=== PATIENT | female | born 1940 | race Caucasian/White ===

== ENCOUNTER → 2017-10-16 09:33 | Outpatient (CLI) | payer BC, MEDICARE, SELFPAY ==
--- NOTE | 2017-10-16 | DI.MG.S_ITS ---
BILATERAL DIGITAL SCREENING MAMMOGRAM 3D/2D WITH CAD: 10/16/2017 CLINICAL: Routine screening. Comparison is made to exams dated: 04/18/2016 mammogram - [facility], 01/30/2013 mammogram, and 01/30/2012 mammogram - [facility]. The tissue of both breasts is predominantly fatty. Current study was also evaluated with a Computer Aided Detection (CAD) system. There are post operative findings in the left breast. No significant masses, calcifications, or other findings are seen in either breast. There has been no significant interval change. IMPRESSION: NEGATIVE There is no mammographic evidence of malignancy. A 1 year screening mammogram is recommended. This exam was interpreted at Station ID: [id number]. NOTE: For mammograms, a report in lay terms will be sent to the patient. Approximately 15% of breast malignancies will not be visualized mammographically. In the management of a palpable breast mass, a negative mammogram must not discourage biopsy of a clinically suspicious lesion. Electronically Signed By: Waldemar nava/justyna:10/16/2017 13:29:25 letter sent: Normal Exam ACR BI-RADS Category 1: Negative 3341F
== END ==
PROVIDERS: PCP Physician Assistant; Visit Provider Physician Assistant
DX: Z12.31 Encounter for screening mammogram for malignant neoplasm of breast (principal)
CPT/HCPCS: 77063; 77067

== ENCOUNTER → 2017-11-11 09:05 | Outpatient (CLI) | payer BC, SELFPAY ==
[2017-11-11 12:31] LABS: Alanine Aminotransferase 41 IU/L (9-52); Albumin 3.9 g/dL (3.5-5.0); Albumin Globulin Ratio 1.4 (1.0-2.8); Alkaline Phosphatase 79 U/L (38-126); Aspartate Aminotransferase 25 IU/L (14-36); BUN Creatinine Ratio 24.3 (6-22); Bilirubin Total 0.7 mg/dL (0.2-1.3); Blood Urea Nitrogen 17 mg/dL (7-17); Calcium 9.5 mg/dL (8.4-10.2); Carbon Dioxide 33 mmol/L (22-32); Chloride 97 mmol/L (98-107); Estimated Glomerular Filt Rate > 60.0 mL/min (>60); Globulin 2.7 g/dL (1.7-4.1); Glucose 135 mg/dL (80-110); HEMOLYSIS < 15 (0-50); Potassium 4.6 mmol/L (3.4-5.1); Sodium 141 mmol/L (137-145); Total Protein 6.6 g/dL (6.3-8.2)
[2017-11-11 13:09] LABS: Hemoglobin A1C% w Est Avg Glu 7.4 % (4.0-6.0)
== END ==
PROVIDERS: PCP Physician Assistant; Visit Provider Physician Assistant
DX: E78.5 Hyperlipidemia, unspecified (principal); I10 Essential (primary) hypertension; E11.9 Type 2 diabetes mellitus without complications
CPT/HCPCS: 36415; 80053; 83036

== ENCOUNTER → 2018-02-06 11:15 | Outpatient (CLI) | payer BC, SELFPAY ==
--- NOTE | 2018-02-06 | DI.RAD.S_ITS ---
PROCEDURE: XR CHEST 2V INDICATIONS: COUGH TECHNIQUE: 2 views of the chest were acquired. COMPARISON: [facility], CHEST 2 VIEW, 05/07/2012, 14:24. [facility], CHEST 1 VIEW, 08/12/2017, 10:42. FINDINGS: Surgical changes and devices: Lower cervical and lumbar fixation hardware. Chronically elevated right hemidiaphragm. Lungs and pleura: No pleural effusions or pneumothorax. Lungs are clear. Mediastinum: Mediastinal contours are normal. Heart size is normal. Bones and chest wall: No suspicious bony abnormalities. Soft tissues appear unremarkable. IMPRESSION: No source for cough identified. Dictated by: Marc Whiting RR Interpreted: Jer Brand MD on 02/06/2018 at 11:31 Approved by: Jer Brand M.D. on 02/06/2018 at 17:18
== END ==
PROVIDERS: PCP Physician Assistant; Visit Provider Physician Assistant
DX: R05 Cough (principal)
CPT/HCPCS: 71046

== ENCOUNTER → 2018-05-09 09:53 | Outpatient (CLI) | payer BC, SELFPAY ==
--- NOTE | 2018-05-09 | DI.RAD.S_ITS ---
PROCEDURE: XR CHEST 2V INDICATIONS: Acute bronchitis, unspecified TECHNIQUE: 2 views of the chest were acquired. COMPARISON: [facility], CR, XR CHEST 2V, 02/06/2018, 10:53. FINDINGS: Surgical changes and devices: Cervical fixation plate. Lungs and pleura: No pleural effusions or pneumothorax. Lungs are clear. Mediastinum: Mediastinal contours are normal. Heart size is mildly prominent. Bones and chest wall: No suspicious bony abnormalities. Soft tissues appear unremarkable. IMPRESSION: No acute pulmonary process. Dictated by: Sarah Conteh M.D. on 05/09/2018 at 15:37 Approved by: Sarah Conteh M.D. on 05/09/2018 at 15:38
== END ==
PROVIDERS: PCP Physician Assistant; Visit Provider Student in an Organized Health Care Education/Training Program
DX: J20.9 Acute bronchitis, unspecified (principal)
CPT/HCPCS: 71046

== ENCOUNTER → 2018-05-22 14:52 | Outpatient (CLI) | payer BC, SELFPAY ==
--- NOTE | 2018-05-22 | DI.CT.S_ITS ---
PROCEDURE: CT CHEST WO CON INDICATIONS: COUGH,SOB TECHNIQUE: Noncontrast 5 mm thick sections acquired from the pulmonary apices to the posterior costophrenic angles. 7 mm thick coronal and sagittal MIP reformats were then acquired. For radiation dose reduction, the following was used: automated exposure control, adjustment of mA and/or kV according to patient size. COMPARISON: [facility], CR, CHEST 1 VIEW, 08/12/2017, 10:42. [facility], , XR CHEST 2V, 05/09/2018, 10:00. FINDINGS: Image quality: Excellent. Lungs and pleura: There is patchy bibasilar pneumonia greater on the right than the left. Mild chronic elevation of the right hemidiaphragm. No pleural effusion or mass lesion is seen.. No pleural effusions or pneumothorax. Central and peripheral airways are patent and normal in caliber. Mediastinum: Heart size is normal. No pericardial effusion. No mediastinal adenopathy by size criteria. Thoracic aorta and central pulmonary arteries are normal in size. Esophagus is normal in caliber. No hiatal hernia. Bones and chest wall: No suspicious bony lesions. No vertebral body compression fractures. No axillary or supraclavicular adenopathy by size criteria. Thyroid gland is not well-visualized by this noncontrast technique.. Abdomen: Visualized upper abdominal solid organs and bowel loops appear normal in the absence of contrast. IMPRESSION: Patchy bilateral lung base pneumonia, right greater than left, with mild chronic elevation of the right hemidiaphragm. No effusion or central mass lesion is found. Dictated by: Milton Church M.D. on 05/22/2018 at 16:08 Approved by: Milton Church M.D. on 05/22/2018 at 16:09
[2018-05-22 15:34] LABS: Bacteria Urine None Seen
[2018-05-22 16:01] LABS: Add Manual Diff / Slide Review NO; Basophils Percent Auto 0.1 % (0-2); Hematocrit 37.5 % (36-46); Hemoglobin 12.4 g/dL (12.0-16.0); Lymphocytes Percent Auto 4.3 % (25-40); Mean Corpuscular HGB Conc 32.9 % (30-36); Mean Corpuscular Hemoglobin 29.4 PG (26-34); Mean Corpuscular Volume 89.2 fL (80-100); Neutrophils Absolute Auto 16400 /uL (1500-7000); Neutrophils Percent Auto 87.6 % (50-75); Platelet Count 342 X10^3/uL (150-400); Red Cell Distribution Width 13.1 % (11.6-14.8); White Blood Cell Count 18.7 X10^3/uL (4.5-11.0)
[2018-05-22 16:16] LABS: Hemoglobin A1C% w Est Avg Glu 8.1 % (4.0-6.0)
[2018-05-22 17:03] LABS: Alanine Aminotransferase 29 IU/L (9-52); Albumin 3.8 g/dL (3.5-5.0); Albumin Globulin Ratio 1.4 (1.0-2.8); Alkaline Phosphatase 81 U/L (38-126); Aspartate Aminotransferase 17 IU/L (14-36); BUN Creatinine Ratio 22.9 (6-22); Bilirubin Total 0.7 mg/dL (0.2-1.3); Blood Urea Nitrogen 16 mg/dL (7-17); Calcium 9.2 mg/dL (8.4-10.2); Carbon Dioxide 28 mmol/L (22-32); Chloride 91 mmol/L (98-107); Cholesterol 134 mg/dL (140-199); Estimated Glomerular Filt Rate > 60.0 mL/min (>60); Globulin 2.8 g/dL (1.7-4.1); Glucose 288 mg/dL (80-110); HDL Cholesterol 44 mg/dL (40-60); HEMOLYSIS < 15 (0-50); LDL Cholesterol Calculated 64 mg/dL (<100); Sodium 133 mmol/L (137-145); Total Protein 6.6 g/dL (6.3-8.2); Triglycerides 130 mg/dL (35-150)
[2018-05-22 17:12] LABS: Appearance Urine UA CLEAR; Bilirubin Urine UA NEGATIVE (NEGATIVE); Color Urine UA YELLOW; Glucose Urine UA 1+ g/dL (Negative); Ketones Urine UA NEGATIVE (NEGATIVE); Leukocyte Esterase Urine UA NEGATIVE (NEGATIVE); Nitrite Urine UA NEGATIVE (Negative); Occult Blood Urine UA 1+ (Negative); Protein Urine UA NEGATIVE (Negative); Specific Gravity Urine UA <=1.005 (1.000-1.035); Urobilinogen Urine UA 0.2 E.U./dL (0.2)
[2018-05-22 17:30] LABS: Culture Indicated Urine Cult Not Indicated; RBC Urine 0-1/HPF (0-5/HPF); Squamous Epithelial Cell Urine 0-1 /HPF; WBC Urine 0-1/HPF (0-5/HPF)
== END ==
PROVIDERS: PCP Physician Assistant; Visit Provider Physician Assistant
DX: R06.02 Shortness of breath (principal); R05 Cough
CPT/HCPCS: 36415; 71250; 80053; 80061; 81001; 83036; 85025; 87070; 87205

== ENCOUNTER 2018-05-22 20:16 | Emergency (ER) | payer BC, SELFPAY ==
[2018-05-22 20:24] VITALS: BP 160/60; PULSE 91; RESP 22; TEMP 37.1; O2SAT 93
--- NOTE | 2018-05-22 20:29 | ED_ITS ---
HPI - SOB/Dyspnea General Chief Complaint: Shortness of Breath/Dyspnea Stated Complaint: DIFFICULTY BREATHING Time Seen by Provider: 05/22/18 20:20 Source: patient and family Mode of arrival: ambulatory Limitations: no limitations History of Present Illness 77-year-old female, nonsmoker presents with her and a chief complaint of hacking cough with sputum production for the past few days. She denies nausea or vomiting. She denies shaking chills. She is not dizzy nor weak or lightheaded. She denies any chest or abdominal pain. She was evaluated by her primary care provider and had lab work as well as outpatient CAT scan performed. The labs [place] [address] scan shows suggestion mild bilateral infiltrate. Patient had antibiotics called in but was unable to access those medications tonight. After consulting with her primary care provider and her son, and emergency doctor, she elected to present to the emergency department MD Complaint: shortness of breath and cough Onset (ago): day(s) Context: recent illness Severity: moderate Consistency/Duration: constant Exacerbating factors: coughing Associated symptoms: denies other symptoms Treatment prior to arrival: bronchodilator Related Data Home oxygen amount: none Home Medications Medication Instructions Recorded Confirmed [GUAIATUSSIN ] 5 ml PO Q6HP PRN #0 08/12/17 albuterol sulfate [Ventolin HFA] 2 puff INH Q4HP PRN #0 08/12/17 amoxicillin-pot clavulanate 875 mg PO Q12H #0 08/12/17 [Augmentin] benzonatate 200 mg PO TID #0 08/12/17 insulin glargine [Lantus Solostar 10 unit SQ QPM #0 08/12/17 U-100 Insulin] metoprolol tartrate 50 mg PO QPM #0 08/12/17 prednisone 40 mg PO QDAY #0 08/12/17 Previous Rx's Medication Instructions Recorded levofloxacin [Levaquin] 500 mg PO DAILY #7 tab 05/22/18 Allergies Allergy/AdvReac Type Severity Reaction Status Date / Time cyclobenzaprine Allergy Mild GI UPSET Unverified 08/28/17 11:52 [CYCLOBENZAPRINE] piroxicam [PIROXICAM] Allergy Unknown UNKNOWN Unverified 08/28/17 11:52 PER PT Review of Systems Review of Systems All systems reviewed & are unremarkable except as noted in HPI and below Constitutional Denies chills, Denies fever(s), Denies lethargy and Denies weakness Eyes Denies change in vision, Denies eye discharge, Denies irritation and Denies loss of vision ENT Ears, Nose, Mouth, and Throat: Denies change in voice, Denies neck pain and Denies sore throat Cardiovascular Denies chest pain, Denies irregular heart rhythm, Denies lightheadedness, Denies palpitations, Reports dyspnea, Reports dyspnea on exertion and Denies orthopnea Respiratory Reports cough, Reports excessive phlegm production, Reports dyspnea, Reports dyspnea on exertion and Reports wheezing Gastrointestinal Gastrointestinal: Denies abdominal pain, Denies change in bowel habits, Denies diarrhea, Denies nausea and Denies vomiting Genitourinary Denies hematuria, Denies flank pain, Denies urinary incontinence and Denies urinary urgency Musculoskeletal Denies neck pain Integumentary/Breasts Denies pruritus, Denies erythema, Denies rash and Denies wounds Neurologic Denies confusion, Denies loss of vision and Denies weakness Psychiatric Denies anxiety, Denies confusion, Denies depression, Denies homicidal ideation and Denies suicidal ideation Endocrine Denies palpitations Hematologic/Lymphatic Denies easy bruising Allergic/Immunologic Reports wheezing [facility] Social History Smoking Status: Never smoker Exam Narrative Exam Narrative: GENERAL: This is a well-nourished, well-developed patient, in mild distress. Coughing HEAD: Atraumatic. Normocephalic. No temporal or scalp tenderness. EYES: Pupils equal round and reactive. Extraocular motions intact. No scleral icterus. No injection or drainage. ENT: Nose without bleeding, purulent drainage or septal hematoma. Throat without erythema, tonsillar hypertrophy or exudate. Uvula midline. Airway patent. NECK: Trachea midline. No JVD or lymphadenopathy. Supple, nontender, no meningeal signs. CARDIOVASCULAR: Regular rate and rhythm without murmurs, gallops, or rubs. RESPIRATORY: Bibasilar crackles with mild expiratory wheeze. Bronchospastic type cough. No significant tachypnea. No belly breathing or use of intercostals GASTROINTESTINAL: Abdomen soft, non-tender, nondistended. No hepato-splenomegaly , or palpable masses. No guarding. EXTREMITIES: No clubbing, cyanosis, or edema. No joint tenderness, effusion, or edema noted. BACK: Nontender without deformity or crepitance. No flank tenderness. NEURO: AOx3. SKIN: No rash or erythema. Initial Vital Signs Initial Vital Signs: Vital Signs Temperature 98.7 F 05/22/18 20:24 Pulse Rate 91 H 05/22/18 20:24 Respiratory Rate 22 05/22/18 20:24 Blood Pressure 160/60 H 05/22/18 20:24 Pulse Oximetry 93 05/22/18 20:24 Scores CURB-65 Confusion: No BUN >19mg/dL (>7mmol/L): No Respiratory rate greater or equal to 30: No SBP <90mmHg or DBP less or equal to 60mmHg: No Age 65 or Older: Yes CURB-65 Total: 1 Score 0-1 Outpatient care, Score 2 Inpt vs. Obs, Score 3 or over Inpt admit with ICU for score of 4-5 Course Orders Ordered: ED Orders 05/22/18 20:50 Arterial Blood Gas Stat Discontinued Medications Albuterol (Ventolin) 2.5 mg INH NOW ONE Stop: 05/22/18 20:45 Last Admin: 05/22/18 21:50 Dose: Not Given Albuterol (Ventolin) 2.5 mg INH NOW ONE Stop: 05/22/18 20:48 Last Admin: 05/22/18 20:48 Dose: 2.5 mg Albuterol/Ipratropium (Duoneb) 3 ml INH NOW ONE Stop: 05/22/18 20:34 Last Admin: 05/22/18 20:33 Dose: 3 ml Albuterol/Ipratropium (Duoneb) 3 ml INH NOW ONE Stop: 05/22/18 20:37 Last Admin: 05/22/18 21:50 Dose: Not Given Levofloxacin (Levaquin) 500 mg in 100 mls @ 100 mls/hr IV NOW ONE Stop: 05/22/18 21:35 Last Infusion: 05/22/18 22:12 Dose: 100 mls/hr Admin: 05/22/18 20:40 Dose: 100 mls/hr Reevaluation(s) Reevaluation #1: [address] [address] [address] Scan Report Signed Patient: Mandy Stratton MR#: [id number] : 1940 Acct:[id number] Age/Sex: 77 / F Date of Service: 05/22/18 Loc: RESP Accession Number: [id number] Procedure: CT chest wo con Ordering Provider: Sabina Hodges P.A-C PROCEDURE: CT CHEST WO CON INDICATIONS: COUGH,SOB TECHNIQUE: Noncontrast 5 mm thick sections acquired from the pulmonary apices to the posterior costophrenic angles. 7 mm thick coronal and sagittal MIP reformats were then acquired. For radiation dose reduction, the following was used: automated exposure control, adjustment of mA and/or kV according to patient size. COMPARISON: [facility], , CHEST 1 VIEW, 08/12/2017, 10:42. [facility], , XR CHEST 2V, 05/09/2018, 10:00. FINDINGS: Image quality: Excellent. Lungs and pleura: There is patchy bibasilar pneumonia greater on the right than the left. Mild chronic elevation of the right hemidiaphragm. No pleural effusion or mass lesion is seen.. No pleural effusions or pneumothorax. Central and peripheral airways are patent and normal in caliber. Mediastinum: Heart size is normal. No pericardial effusion. No mediastinal adenopathy by size criteria. Thoracic aorta and central pulmonary arteries are normal in size. Esophagus is normal in caliber. [place] [address] CT Scan Report Signed Patient: Mandy Stratton MR#: [id number] : 1940 Acct:[id number] Age/Sex: 77 / F Date of Service: 05/22/18 Loc: RESP Accession Number: [id number] Procedure: CT chest wo con Ordering Provider: Sabina Hodges P.A-C PROCEDURE: CT CHEST WO CON INDICATIONS: COUGH,SOB TECHNIQUE: Noncontrast 5 mm thick sections acquired from the pulmonary apices to the posterior costophrenic angles. 7 mm thick coronal and sagittal MIP reformats were then acquired. For radiation dose reduction, the following was used: automated exposure control, adjustment of mA and/or kV according to patient size. COMPARISON: [facility], , CHEST 1 VIEW, 08/12/2017, 10:42. [facility], , XR CHEST 2V, 05/09/2018, 10:00. FINDINGS: Image quality: Excellent. Lungs and pleura: There is patchy bibasilar pneumonia greater on the right than the left. Mild chronic elevation of the right hemidiaphragm. No pleural effusion or mass lesion is seen.. No pleural effusions or pneumothorax. Central and peripheral airways are patent and normal in caliber. Mediastinum: Heart size is normal. No pericardial effusion. No mediastinal adenopathy by size criteria. Thoracic aorta and central pulmonary arteries are normal in size. Esophagus is normal in caliber. No hiatal hernia. Bones and chest wall: No suspicious bony lesions. No vertebral body compression PORT Score 76 - Risk Class III Vital Signs - 8 hr 05/22/18 20:24 05/22/18 20:34 05/22/18 20:48 Temperature 98.7 F Pulse Rate 91 H 84 87 Respiratory Rate 22 18 18 Blood Pressure 160/60 H Pulse Oximetry 93 94 94 05/22/18 21:19 Temperature 98.7 F Pulse Rate 87 Respiratory Rate 18 Blood Pressure 160/60 H Pulse Oximetry 94 MDM - SOB/Dyspnea Differential Diagnosis Likely community acquired pneumonia and asthma with exacerbation Medical Records Attestation: I reviewed the patient's medical records. Lab Data Lab Results 05/22/18 Range/Units 20:50 ABG pH 7.56 H (7.35-7.45) ABG pCO2 33.6 L (35-45) mmHg ABG pO2 61 L (80-100) mmHg ABG HCO3 30 H (22-26) mmol/L ABG Total CO2 31 (21-31) mmol/L ABG O2 Saturation 94 L (95-100) % ABG Base Excess 8.0 H (-2-2) mmol/L FiO2 [address] scan - chest: Radiologist's impression: [address] [address] [address] Scan Report Signed Patient: Mandy Stratton MR#: [id number] : 1940 Acct:[id number] Age/Sex: 77 / F Date of Service: 05/22/18 Loc: RESP Accession Number: [id number] Procedure: CT chest wo con Ordering Provider: Sabina Hodges P.A-C PROCEDURE: CT CHEST WO CON INDICATIONS: COUGH,SOB TECHNIQUE: Noncontrast 5 mm thick sections acquired from the pulmonary apices to the posterior costophrenic angles. 7 mm thick coronal and sagittal MIP reformats were then acquired. For radiation dose reduction, the following was used: automated exposure control, adjustment of mA and/or kV according to patient size. COMPARISON: [facility], , CHEST 1 VIEW, 08/12/2017, 10:42. [facility], , XR CHEST 2V, 05/09/2018, 10:00. FINDINGS: Image quality: Excellent. Lungs and pleura: There is patchy bibasilar pneumonia greater on the right than the left. Mild chronic elevation of the right hemidiaphragm. No pleural effusion or mass lesion is seen.. No pleural effusions or pneumothorax. Central and peripheral airways are patent and normal in caliber. Mediastinum: Heart size is normal. No pericardial effusion. No mediastinal adenopathy by size criteria. Thoracic aorta and central pulmonary arteries are normal in size. Esophagus is normal in caliber. No hiatal hernia. Bones and chest wall: No suspicious bony lesions. No vertebral body compression fractures. No axillary or supraclavicular adenopathy by size criteria. Thyroid gland is not well-visualized by this noncontrast technique.. Abdomen: Visualized upper abdominal solid organs and bowel loops appear normal in the absence of contrast. IMPRESSION: Patchy bilateral lung base pneumonia, right greater than left, with mild chronic elevation of the right hemidiaphragm. No effusion or central mass lesion is found. Dictated by: Milton Church M.D. on 05/22/2018 at 16:08 Approved by: Milton Church M.D. on 05/22/2018 at 16:[address] [facility] Narrative Medical decision making narrative: 77 year old non smoker with SOB and known pneumonia. Patient SpO2 in mid 90s on RA. Imaging notes mild B/L infiltrate. WBC elevated. No suggestion of sepsis or overwhelming respiratory difficulty. She does not require supplemental oxygen. CURB/PORT scores evaluated. Discussed hospitalization with patient and and through shared decision making she elects to treat as outpatient and will return if worse. Offered to speak with son on the phone, but they requested DC. Patient understands return precautions. Discharge Plan Departure Patient Disposition: Home Clinical Impression: Community acquired pneumonia Discharge Date/Time: 05/22/18 22:08 Interventions: ED Discharge Assessment Last Done: 05/22/18 22:08 Instructions: DI for Pneumonia -- Adult Activity Restrictions/Additional Instructions: *You have been diagnosed with [ community acquired pneumonia ] *What to do: *Take medications as directed *Follow up with your primary care provider in 2-3 days, call for an appointment. Let them know you were seen in the Emergency Department and that we ask that you be seen in follow up *Return to ER if you should have any new, worsening or concerning symptoms Prescriptions: New levofloxacin [Levaquin] 500 mg tablet 500 mg PO DAILY Qty: 7 RF: 0 No Action prednisone 20 MG tablet 40 mg PO QDAY Qty: 0 RF: 0 albuterol sulfate [Ventolin HFA] 90 MCG/PUFF HFA aerosol inhaler 2 puff INH Q4HP PRNQty: 0 RF: 0 benzonatate 200 MG capsule 200 mg PO TID Qty: 0 RF: 0 amoxicillin-pot clavulanate [Augmentin] 875 MG/125 MG tablet 875 mg PO Q12H Qty: 0 RF: 0 [GUAIATUSSIN ] 5 ml PO Q6HP PRNQty: 0 RF: 0 insulin glargine [Lantus Solostar U-100 Insulin] 100 UNIT/1 ML insulin pen 10 unit SQ QPM Qty: 0 RF: 0 metoprolol tartrate 50 MG tablet 50 mg PO QPM Qty: 0 RF: 0 Referrals: Sabina Hodges PA-C [Primary Care Provider] -
[2018-05-22] MEDS: ALBUTEROL/IPRATROPIUM 3 ML AMPUL INH (20:33)
[2018-05-22 20:34] VITALS: PULSE 84; RESP 18; O2SAT 94
[2018-05-22] MEDS: levoFLOXacin 500 MG/100 ML PIGGYBACK 100 MG IV (20:40)
[2018-05-22 20:48] VITALS: PULSE 87; RESP 18; O2SAT 94
[2018-05-22] MEDS: ALBUTEROL 2.5 MG/3 ML NEB (ADULT) INH (20:48)
[2018-05-22 21:06] LABS: Fractionated Inspired Oxygen 21; HCO3 ABG 30 mmol/L (22-26); Oxygen Saturation ABG 94 % (95-100); PCO2 ABG 33.6 mmHg (35-45); PO2 ABG 61 mmHg (80-100); TCO2 ABG 31 mmol/L (21-31); pH ABG 7.56 (7.35-7.45)
[2018-05-22 21:19] VITALS: BP 160/60; PULSE 87; RESP 18; TEMP 37.1; O2SAT 94
== END 2018-05-22 22:08 | disposition home or self-care (01) ==
PROVIDERS: Emergency Provider Emergency Medicine; Family Provider Physician Assistant; PCP Physician Assistant
DX: J18.9 Pneumonia, unspecified organism (principal)
CPT/HCPCS: 36415; 36591; 36600; 71250; 80053; 80061; 81001; 82805; 83036; 85025; 87070; 87077; 87186; 87205; 94640; 96365; 96366; 99283; 99284; J1956; J7613

== ENCOUNTER → 2018-07-16 14:09 | Outpatient (CLI) | payer BC, SELFPAY ==
--- NOTE | 2018-07-18 16:10 | PM.PFT.1 ---
Pulmonary Function Test Referral & Results Date Patient Seen: 07/16/18 Requesting provider: Sabina Hodges Indication: R06.02 Results: The spirometry demonstrates an FVC of 1.96 L which is 70% of predicted. The FEV1 was measured at 1.46 L which is 79% of predicted. The FEV1/FVC ratio was 75 which is 100% of predicted. Following the administration of bronchodilator there was no appreciable change. Lung volumes show an SVC of 2.03 L which is 80% of predicted. The diffusing capacity was measured at 18.01 which is 83% of predicted. The maximum voluntary ventilation was reduced Interpretation: This study demonstrates mild obstructive lung disease based on FEV1 at 79% of predicted. No evidence of benefit following bronchodilator There is also mild restrictive lung disease present based on an SVC of 80% of predicted There is also mild reduction in diffusing capacity suggesting element of disease at the capillary alveolar level, unless patient is anemic
== END ==
PROVIDERS: Family Provider Physician Assistant; PCP Physician Assistant; Visit Provider Physician Assistant
DX: R06.02 Shortness of breath (principal); R05 Cough
CPT/HCPCS: 94060; 94726; 94729

== ENCOUNTER → 2019-03-11 15:06 | Outpatient (CLI) | payer BC, SELFPAY ==
--- NOTE | 2019-03-11 | DI.MG.S_ITS ---
BILATERAL DIGITAL SCREENING MAMMOGRAM 3D/2D WITH CAD: 03/11/2019 CLINICAL: Routine screening. Comparison is made to exams dated: 10/16/2017 mammogram, 04/18/2016 mammogram - [facility], and 01/30/2013 mammogram - [facility]. There are scattered fibroglandular elements in both breasts. Current study was also evaluated with a Computer Aided Detection (CAD) system. There are benign calcifications in both breasts. There also are benign post operative findings in the left breast. No significant masses, calcifications, or other findings are seen in either breast. There has been no significant interval change. IMPRESSION: There is no mammographic evidence of malignancy. A 1 year screening mammogram is recommended. This exam was interpreted at Station ID: [id number]. NOTE: For mammograms, a report in lay terms will be sent to the patient. Approximately 15% of breast malignancies will not be visualized mammographically. In the management of a palpable breast mass, a negative mammogram must not discourage biopsy of a clinically suspicious lesion. Electronically Signed By: Ray ren/justyna:03/11/2019 16:27:34 letter sent: Normal Exam ACR BI-RADS Category 2: Benign Finding(s) 3342F
== END ==
PROVIDERS: PCP Physician Assistant; Visit Provider Physician Assistant
DX: Z12.31 Encounter for screening mammogram for malignant neoplasm of breast (principal)
CPT/HCPCS: 77063; 77067

== ENCOUNTER → 2019-03-18 13:58 | Outpatient (CLI) | payer BC, SELFPAY | PROVIDERS: PCP Physician Assistant; Visit Provider Physician Assistant | DX: M85.832 Other specified disorders of bone density and structure, left forearm (principal); Z78.0 Asymptomatic menopausal state; E11.9 Type 2 diabetes mellitus without complications | CPT/HCPCS: 77080 ==

== ENCOUNTER → 2019-06-17 09:41 | Outpatient (CLI) | payer BC, SELFPAY ==
[2019-06-17 10:28] LABS: Hemoglobin A1C% w Est Avg Glu 8.9 % (4.0-6.0)
[2019-06-17 10:33] LABS: Add Manual Diff / Slide Review NO; Basophils Absolute Auto 100 /uL (0-100); Basophils Percent Auto 1.2 % (0-2); Eosinophils Absolute Auto 200 /uL (0-450); Eosinophils Percent Auto 3.1 % (2-4); Hematocrit 37.1 % (36-46); Hemoglobin 12.6 g/dL (12.0-16.0); Lymphocytes Absolute Auto 1700 /uL (1100-4500); Lymphocytes Percent Auto 23.2 % (25-40); Mean Corpuscular Hemoglobin 30.8 PG (26-34); Mean Corpuscular Volume 90.5 fL (80-100); Monocytes Absolute Auto 700 /uL (0-900); Monocytes Percent Auto 9.2 % (3-14); Neutrophils Absolute Auto 4700 /uL (1500-7000); Neutrophils Percent Auto 63.3 % (50-75); Platelet Count 239 X10^3/uL (150-400); Red Cell Distribution Width 12.8 % (11.6-14.8); White Blood Cell Count 7.4 X10^3/uL (4.5-11.0)
[2019-06-17 11:04] LABS: Alanine Aminotransferase 30 IU/L (<35); Albumin 3.8 g/dL (3.5-5.0); Albumin Globulin Ratio 1.4 (1.0-2.8); Alkaline Phosphatase 83 U/L (38-126); Aspartate Aminotransferase 32 IU/L (14-36); BUN Creatinine Ratio 22.9 (6-22); Bilirubin Total 0.7 mg/dL (0.2-1.3); Blood Urea Nitrogen 16 mg/dL (7-17); Calcium 9.2 mg/dL (8.4-10.2); Carbon Dioxide 31 mmol/L (22-32); Chloride 97 mmol/L (98-107); Cholesterol 160 mg/dL (140-199); Estimated Glomerular Filt Rate > 60.0 mL/min (>60); Globulin 2.8 g/dL (1.7-4.1); Glucose 173 mg/dL (80-110); HDL Cholesterol 46 mg/dL (40-60); HEMOLYSIS < 15 (0-50); LDL Cholesterol Calculated 66 mg/dL (<100); Sodium 136 mmol/L (137-145); Total Protein 6.6 g/dL (6.3-8.2); Triglycerides 238 mg/dL (35-150)
== END ==
PROVIDERS: PCP Physician Assistant; Visit Provider Physician Assistant
DX: I10 Essential (primary) hypertension (principal); E11.9 Type 2 diabetes mellitus without complications; E78.2 Mixed hyperlipidemia
CPT/HCPCS: 36415; 80053; 80061; 83036; 85025

== ENCOUNTER 2019-06-30 15:30 | Emergency (ER) | payer BC, SELFPAY ==
[2019-06-30 15:30] VITALS: BP 141/72; PULSE 108; RESP 20; TEMP 36.9; O2SAT 100
--- NOTE | 2019-06-30 15:49 | DI.RAD.S_ITS ---
PROCEDURE: XR ACUTE ABDOMEN SERIES INDICATIONS: vomiting, hx of hystrectomy and TECHNIQUE: One view chest and two views of the abdomen were acquired. COMPARISON: None. FINDINGS: Surgical changes and devices: Low anterior cervical fusion has been performed. Lower lumbar fusion has been performed. Bilateral hip arthroplasty has been performed. Chest: Lungs are clear. Heart size is normal. No pleural effusions. No pneumoperitoneum. Abdomen: Bowel gas pattern is normal. No suspicious calcifications. Visualized solid organ contours appear normal. Bones: No suspicious bony lesions. IMPRESSION: No acute process. Dictated by: Hugo Marie M.D. on 06/30/2019 at 16:08 Approved by: Hugo Marie M.D. on 06/30/2019 at 16:08
[2019-06-30 15:52] LABS: Add Manual Diff / Slide Review NO; Basophils Absolute Auto 100 /uL (0-100); Basophils Percent Auto 0.6 % (0-2); Eosinophils Absolute Auto 100 /uL (0-450); Eosinophils Percent Auto 0.7 % (2-4); Hematocrit 39.4 % (36-46); Hemoglobin 13.3 g/dL (12.0-16.0); Lymphocytes Absolute Auto 1400 /uL (1100-4500); Lymphocytes Percent Auto 13.5 % (25-40); Mean Corpuscular HGB Conc 33.9 % (30-36); Mean Corpuscular Hemoglobin 30.5 PG (26-34); Mean Corpuscular Volume 90.1 fL (80-100); Monocytes Absolute Auto 600 /uL (0-900); Monocytes Percent Auto 5.8 % (3-14); Neutrophils Absolute Auto 8000 /uL (1500-7000); Neutrophils Percent Auto 79.4 % (50-75); Platelet Count 235 X10^3/uL (150-400); Red Blood Cell Count 4.37 X10^6/uL (4.0-5.2); Red Cell Distribution Width 12.8 % (11.6-14.8); White Blood Cell Count 10.1 X10^3/uL (4.5-11.0)
[2019-06-30] MEDS: ONDANSETRON 4 MG/2 ML INJ IV (15:53)
[2019-06-30] MEDS: SODIUM CHLORIDE 0.9% 500 ML 1000 ML IV (15:54)
[2019-06-30 15:59] LABS: Prothrombin Time 11.8 SECONDS (10.1-12.7)
[2019-06-30 16:02] LABS: PTT Partial Thromboplastin Tim 32 SECONDS (26.4-36.2)
--- NOTE | 2019-06-30 16:04 | ED.NAVMDI ---
HPI - Nausea/Vomiting/Diarrhea <Didier BRANDYN Zapata - Last Filed: 06/30/19 22:04> General Chief complaint: Nausea/Vomiting/Diarrhea Stated complaint: Throwing Up Time Seen by Provider: 06/30/19 15:35 Source: patient Mode of arrival: Ambulatory Limitations: no limitations History of Present Illness HPI Narrative: This is a pleasant 78-year-old female, nonsmoker, who presents to ED with significant other with chief complain of nausea and vomiting times 6-8 episodes since this morning. Patient reports she feels like has to burp than vomiting occurs. Patient also reports sore throat which started yesterday. Patient had mild right lower quadrant discomfort which has been resolved after a brief period. Patient also had a weird sensation in her left chest which lasted for a few seconds. Patient also had diarrhea once today. Patient denies history of decreased kidney function. She takes HCTZ and potassium daily. Patient last had old male as breakfast this morning at 7:30 a.m. which she vomited. She had small sips of liquid ingestion at 2:30 p.m. also which she vomited after. Patient reports initially had food particles but now she has liquid and bile in her emesis. Patient has history of and cholecystectomy as her surgical history. Patient denies fever, chills. Related Data Home Medications Medication Instructions Recorded Confirmed Lantus Solostar U-100 Insulin 13 unit SQ QPM #0 08/12/17 06/30/19 albuterol sulfate [Ventolin HFA] 2 puff INH Q4HP PRN #0 08/12/17 06/30/19 fluticasone propion-salmeterol 1 inh INHALATION BID 06/30/19 06/30/19 [Wixela Inhub] hydrochlorothiazide 12.5 mg PO DAILY 06/30/19 06/30/19 liraglutide [Victoza 3-Graham] 1.8 mg SUBCUT DAILY 06/30/19 06/30/19 losartan 100 mg PO BEDTIME 06/30/19 06/30/19 metoprolol succinate 50 mg PO QPM 06/30/19 06/30/19 metoprolol succinate 100 mg PO QAM 06/30/19 06/30/19 pen needle, diabetic [NovoTwist] 06/30/19 06/30/19 Previous Rx's Medication Instructions Recorded ondansetron 4 mg PO Q6-8H PRN #10 tab 06/30/19 Allergies Allergy/AdvReac Type Severity Reaction Status Date / Time cyclobenzaprine Allergy Mild GI UPSET Unverified 08/28/17 11:52 [CYCLOBENZAPRINE] piroxicam [PIROXICAM] Allergy Unknown UNKNOWN Unverified 08/28/17 11:52 PER PT Review of Systems <BRANDYN Dobson - Last Filed: 06/30/19 22:04> Review of Systems Narrative: General: Denies fever, chills, (+) mild fatigue, malaise, sweats. HEENT: Denies sinus pain, ear pain, sore throat, difficulty swallowing, dizziness. Respiratory: Denies dyspnea, cough, wheezing, hemoptysis, sputum. Cardiovascular: Denies chest pain, palpitations, orthopnea, edema. Gastrointestinal: See HPI : Denies dysuria, frequency, incontinence, hematuria, urinary retention. Musculoskeletal: Denies weakness, joint pain or bony pain. Skin: Denies rash, skin lesions, or other. Neurologic: Denies weakness, headache, numbness, change in speech, confusion, seizures, incoordination. Psychiatric: No concerning psychosocial issues. 12-point review of systems is negative except for those stated above. Patient History <BRANDYN Dobson - Last Filed: 06/30/19 22:04> Medical History Hypertension (Acute) Surgical History History of (Acute) History of cholecystectomy (Acute) Social History Smoking Status: Never smoker Smoking Status: Never smoker alcohol intake frequency: 0-2 drinks per day Substance Use Type: does not use Exam <BRANDYN Dobson - Last Filed: 06/30/19 22:04> Narrative Exam Narrative: GEN: Alert, oriented x 3, well appearing and nourished, and in no acute distress. Head: Normal cephalic, atraumatic. No scalp or temporal tenderness, palpable mass or rash. EYES: Pupils are equal, round, and reactive to light and accommodation. Extraocular muscles are intact bilaterally. There is no subconjunctival hemorrhage, exudate and sclera non-icteric. ENT: Bilateral auditory canals and tympanic membranes clear. Hearing grossly intact. Nose without bleeding, purulent discharge or deviation. Facial sinuses nontender to palpate. Mucous membrane moist, no mucosal lesion. Throat without erythema, tonsillar hypertrophy or exudate. Uvula in midline, airway patent. Neck: Trachea in midline. No JVD, non-tender without lymphadenopathy. No masses or thyroid megaly. Supple, non-tender and no meningeal signs. CARDIAC: Normal regular rate and rhythm without murmurs, gallops, or rubs. No chest wall tenderness. No peripheral edema, cyanosis or pallor. Capillary refill is less than 2 seconds. RESPIRATORY: Lungs are decreased to auscultate bilaterally. No cough, wheezes, rales, or rhonchi. No stridor, respiratory distress, increase work of breathing, or accessary muscle used. ABD: Abdomen soft, mid upper abdomen mildly tender to palpate and non-distended. No guarding or rebound tenderness to palpate. Bowel sounds are normal in all 4 quadrants. There is no palpable masses or organomegaly. EXT: Full painless ROM of all extremities with no loss of sensation, strength, effusion or edema. SKIN: Warm, dry, normal color for patient. No erythema, lesions or rash over visible areas. BACK: Nontender without deformity or crepitance. No flank tenderness. NEUROLOGICAL: Alert and oriented to place, time and person. Sensation and motor function intact bilaterally. No facial droops, dysphasia. PSYCHIATRIC: Good judgement and reason, without hallucinations, abnormal affect or abnormal behaviors during the examination. Initial Vital Signs Initial Vital Signs: Vital Signs Temperature 98.5 F 06/30/19 15:30 Pulse Rate 108 H 06/30/19 15:30 Respiratory Rate 20 06/30/19 15:30 Blood Pressure 141/72 H 06/30/19 15:30 Pulse Oximetry 100 06/30/19 15:30 <Wali Gamboa DO - Last Filed: 07/01/19 06:59> Initial Vital Signs Initial Vital Signs: Vital Signs Temperature 98.5 F 06/30/19 15:30 Pulse Rate 108 H 06/30/19 15:30 Respiratory Rate 20 06/30/19 15:30 Blood Pressure 141/72 H 06/30/19 15:30 Pulse Oximetry 100 06/30/19 15:30 Scores <BRANDYN Dobson - Last Filed: 06/30/19 22:04> GCS Red coma scale eye opening: Spontaneous Red coma scale verbal response: Orientated [place] coma scale motor response: Obey commands [place] coma scale total score: 15 Course <BRANDYN Dobson - Last Filed: 06/30/19 22:04> Orders Ordered: Discontinued Medications Sodium Chloride (Normal Saline 0.9%) 500 mls @ 1,000 mls/hr IV BOLUS ONE Stop: 06/30/19 16:08 Last Infusion: 06/30/19 17:06 Dose: 0 mls/hr Documented by: Admin: 06/30/19 15:54 Dose: 1,000 mls/hr Documented by: WADE Ondansetron HCl (Zofran) 4 mg IV NOW ONE Stop: 06/30/19 15:40 Last Admin: 06/30/19 15:53 Dose: 4 mg Documented by: WADE Vital Signs Vital signs: Vital Signs - 8 hr 06/30/19 15:30 06/30/19 16:30 06/30/19 18:11 Temperature 98.5 F Pulse Rate 108 H 93 H 91 H Respiratory Rate 20 11 L Blood Pressure 141/72 H Blood Pressure [Left Arm] 131/62 137/100 H Pulse Oximetry 100 97 <Wali Gamboa DO - Last Filed: 07/01/19 06:59> Orders Ordered: Discontinued Medications Sodium Chloride (Normal Saline 0.9%) 500 mls @ 1,000 mls/hr IV BOLUS ONE Stop: 06/30/19 16:08 Last Infusion: 06/30/19 17:06 Dose: 0 mls/hr Documented by: Admin: 06/30/19 15:54 Dose: 1,000 mls/hr Documented by: WADE Ondansetron HCl (Zofran) 4 mg IV NOW ONE Stop: 06/30/19 15:40 Last Admin: 06/30/19 15:53 Dose: 4 mg Documented by: WADE Vital Signs Vital signs: Vital Signs - 8 hr 06/30/19 15:30 06/30/19 16:30 06/30/19 18:11 Temperature 98.5 F Pulse Rate 108 H 93 H 91 H Respiratory Rate 20 11 L Blood Pressure 141/72 H Blood Pressure [Left Arm] 131/62 137/100 H Pulse Oximetry 100 97 MDM - Nausea/Vomiting/Diarrhea <Didier Leno-FRANCISCO PangP - Last Filed: 06/30/19 22:04> Differential Diagnosis Differential diagnosis: Likely gastroenteritis, dehydration and other (cholecystitis, bowel obstruction) Medical Records Attestation: I reviewed the patient's medical records. Lab Data Attestation: I reviewed the patient's lab results. Result diagrams: 06/30/19 15:45 06/30/19 15:45 Labs: Lab Results 06/30/19 06/30/19 06/30/19 Range/Units 15:45 15:45 15:45 WBC 10.1 (4.5-11.0) X10^3/uL RBC 4.37 (4.0-5.2) X10^6/uL Hgb 13.3 (12.0-16.0) g/dL Hct 39.4 (36-46) % MCV 90.1 (80-100) fL MCH 30.5 (26-34) PG MCHC 33.9 (30-36) % RDW 12.8 (11.6-14.8) % Plt Count 235 (150-400) X10^3/uL Neut % (Auto) 79.4 H (50-75) % Lymph % (Auto) 13.5 L (25-40) % [place] % (Auto) 5.8 (3-14) % Eos % (Auto) 0.7 L (2-4) % Baso % (Auto) 0.6 (0-2) % Neut # (Auto) 8000 H (8719-5991) /uL Lymph # (Auto) 1400 (6473-0503) /uL [place] # (Auto) 600 (0-900) /uL Eos # (Auto) 100 (0-450) /uL Baso # (Auto) 100 (0-100) /uL PT 11.8 (10.1-12.7) SECONDS INR 1.0 (0.9-1.3) APTT 32 (26.4-36.2) SECONDS Sodium 137 (137-145) mmol/L Potassium 3.6 (3.4-5.1) mmol/L Chloride 96 L (98-107) mmol/L Carbon Dioxide 30 (22-32) mmol/L BUN 14 (7-17) mg/dL Creatinine 0.60 (0.52-1.04) mg/dL Estimated GFR > 60.0 (>60) mL/min BUN/Creatinine Ratio 23.3 H (6-22) Glucose 183 H (80-110) mg/dL Lactate (0.7-2.1) mmol/L Calcium 9.2 (8.4-10.2) mg/dL Magnesium 1.6 (1.6-2.3) mg/dL Total Bilirubin 0.8 (0.2-1.3) mg/dL AST 38 H (14-36) IU/L ALT 40 H (<35) IU/L Alkaline Phosphatase 86 (38-126) U/L Total Creatine Kinase 277 H (30-135) U/L CK-MB (CK-2) 1.48 (<2.37) ng/mL CK-MB (CK-2) Rel Index 0.5 L (1.5-5.0) % Troponin I < 0.012 (0.01-0.034) ng/mL Total Protein 7.2 (6.3-8.2) g/dL Albumin 4.2 (3.5-5.0) g/dL Globulin 3.0 (1.7-4.1) g/dL Albumin/Globulin Ratio 1.4 (1.0-2.8) Lipase 206 (23-300) U/L 06/30/19 06/30/19 Range/Units 15:45 17:29 WBC (4.5-11.0) X10^3/uL RBC (4.0-5.2) X10^6/uL Hgb (12.0-16.0) g/dL Hct (36-46) % MCV (80-100) fL MCH (26-34) PG MCHC (30-36) % RDW (11.6-14.8) % Plt Count (150-400) X10^3/uL Neut % (Auto) (50-75) % Lymph % (Auto) (25-40) % [place] % (Auto) (3-14) % Eos % (Auto) (2-4) % Baso % (Auto) (0-2) % Neut # (Auto) (7493-8391) /uL Lymph # (Auto) (3777-9694) /uL [place] # (Auto) (0-900) /uL Eos # (Auto) (0-450) /uL Baso # (Auto) (0-100) /uL PT (10.1-12.7) SECONDS INR (0.9-1.3) APTT (26.4-36.2) SECONDS Sodium (137-145) mmol/L Potassium (3.4-5.1) mmol/L Chloride (98-107) mmol/L Carbon Dioxide (22-32) mmol/L BUN (7-17) mg/dL Creatinine (0.52-1.04) mg/dL Estimated GFR (>60) mL/min BUN/Creatinine Ratio (6-22) Glucose (80-110) mg/dL Lactate 2.2 H 1.9 (0.7-2.1) mmol/L Calcium (8.4-10.2) mg/dL Magnesium (1.6-2.3) mg/dL Total Bilirubin (0.2-1.3) mg/dL AST (14-36) IU/L ALT (<35) IU/L Alkaline Phosphatase (38-126) U/L Total Creatine Kinase (30-135) U/L CK-MB (CK-2) (<2.37) ng/mL CK-MB (CK-2) Rel Index (1.5-5.0) % Troponin I (0.01-0.034) ng/mL Total Protein (6.3-8.2) g/dL Albumin (3.5-5.0) g/dL Globulin (1.7-4.1) g/dL Albumin/Globulin Ratio (1.0-2.8) Lipase (23-300) U/L Imaging Data XR-AAS : Radiologist's Impression: [address] [address] XRay Report Signed Patient: Mandy Stratton [facility]#: [id number] : 2Acct:[id number] Age/Sex: 78 / FDate of Service: 06/30/19 Loc: ED Accession Number: [id number] Procedure: XR acute abdomen series Ordering Provider: Didier Zapata PROCEDURE: XR ACUTE ABDOMEN SERIES INDICATIONS: vomiting, hx of hystrectomy and TECHNIQUE: One view chest and two views of the abdomen were acquired. COMPARISON: None. FINDINGS: Surgical changes and devices: Low anterior cervical fusion has been performed. Lower lumbar fusion has been performed. Bilateral hip arthroplasty has been performed. Chest: Lungs are clear. Heart size is normal. No pleural effusions. No pneumoperitoneum. Abdomen: Bowel gas pattern is normal. No suspicious calcifications. Visualized solid organ contours appear normal. Bones: No suspicious bony lesions. IMPRESSION: No acute process. Dictated by: Hugo Marie M.D. on 06/30/2019 at 16:08 Approved by: Hugo Marie M.D. on 06/30/2019 at 16:08 ECG Data Attestation: I personally reviewed and interpreted this ECG as follows: Prior ECG tracings: available for review Interpretation: Sinus rhythm rate at 98. Normal [place]. UT interval 164, QRS duration 85, QT/QTC 355/410. Poor R progression. No ST elevation or depression noted. No significant changes from previous EKG. [facility] Narrative Medical decision making narrative: Abdominal physical exam was unremarkable. Patient has very mild tenderness in epigastric region only with soft, nondistended abdomen. There was no rebound tenderness to lower quadrant. Acute abdominal series does not appreciate bowel obstructions and chest x-ray was unremarkable. There was no leukocytosis but very mildly elevated neutrophils. There was slightly elevated BUN/creatinine ratio of 23.3 with chloride of 96. Troponin was negative today with mildly elevated total CK. Mildly elevated AST and ALT with normal lipase. Patient has history of and cholecystectomy. Patient's nausea and vomiting has been well controlled after Zofran IV administration. Patient received 500 mL normal saline infusion while in ED. Initial lactate was 2.2 and this has been repeated after the IV fluid infusion which came back as normal of 1.9. Patient reports feeling much better after the IV hydration and Zofran and further imaging test was deferred at this time. Patient discharged to home with Zofran ODT and advised to hydrate adequately and advance the diet with bland. Strict return precautions were discussed with the patient and patient informed if she experiences pain or recurring nausea and vomiting further imaging test is warranted and patient verbalized understanding and agrees with the treatment plan. <Wali Cooper, DO - Last Filed: 07/01/19 06:59> Lab Data Labs: Lab Results 06/30/19 06/30/19 06/30/19 Range/Units 15:45 15:45 15:45 WBC 10.1 (4.5-11.0) X10^3/uL RBC 4.37 (4.0-5.2) X10^6/uL Hgb 13.3 (12.0-16.0) g/dL Hct 39.4 (36-46) % MCV 90.1 (80-100) fL MCH 30.5 (26-34) PG MCHC 33.9 (30-36) % RDW 12.8 (11.6-14.8) % Plt Count 235 (150-400) X10^3/uL Neut % (Auto) 79.4 H (50-75) % Lymph % (Auto) 13.5 L (25-40) % [place] % (Auto) 5.8 (3-14) % Eos % (Auto) 0.7 L (2-4) % Baso % (Auto) 0.6 (0-2) % Neut # (Auto) 8000 H (5789-4772) /uL Lymph # (Auto) 1400 (7024-3732) /uL [place] # (Auto) 600 (0-900) /uL Eos # (Auto) 100 (0-450) /uL Baso # (Auto) 100 (0-100) /uL PT 11.8 (10.1-12.7) SECONDS INR 1.0 (0.9-1.3) APTT 32 (26.4-36.2) SECONDS Sodium 137 (137-145) mmol/L Potassium 3.6 (3.4-5.1) mmol/L Chloride 96 L (98-107) mmol/L Carbon Dioxide 30 (22-32) mmol/L BUN 14 (7-17) mg/dL Creatinine 0.60 (0.52-1.04) mg/dL Estimated GFR > 60.0 (>60) mL/min BUN/Creatinine Ratio 23.3 H (6-22) Glucose 183 H (80-110) mg/dL Lactate (0.7-2.1) mmol/L Calcium 9.2 (8.4-10.2) mg/dL Magnesium 1.6 (1.6-2.3) mg/dL Total Bilirubin 0.8 (0.2-1.3) mg/dL AST 38 H (14-36) IU/L ALT 40 H (<35) IU/L Alkaline Phosphatase 86 (38-126) U/L Total Creatine Kinase 277 H (30-135) U/L CK-MB (CK-2) 1.48 (<2.37) ng/mL CK-MB (CK-2) Rel Index 0.5 L (1.5-5.0) % Troponin I < 0.012 (0.01-0.034) ng/mL Total Protein 7.2 (6.3-8.2) g/dL Albumin 4.2 (3.5-5.0) g/dL Globulin 3.0 (1.7-4.1) g/dL Albumin/Globulin Ratio 1.4 (1.0-2.8) Lipase 206 (23-300) U/L 06/30/19 06/30/19 Range/Units 15:45 17:29 WBC (4.5-11.0) X10^3/uL RBC (4.0-5.2) X10^6/uL Hgb (12.0-16.0) g/dL Hct (36-46) % MCV (80-100) fL MCH (26-34) PG MCHC (30-36) % RDW (11.6-14.8) % Plt Count (150-400) X10^3/uL Neut % (Auto) (50-75) % Lymph % (Auto) (25-40) % [place] % (Auto) (3-14) % Eos % (Auto) (2-4) % Baso % (Auto) (0-2) % Neut # (Auto) (1006-2477) /uL Lymph # (Auto) (3976-8909) /uL [place] # (Auto) (0-900) /uL Eos # (Auto) (0-450) /uL Baso # (Auto) (0-100) /uL PT (10.1-12.7) SECONDS INR (0.9-1.3) APTT (26.4-36.2) SECONDS Sodium (137-145) mmol/L Potassium (3.4-5.1) mmol/L Chloride (98-107) mmol/L Carbon Dioxide (22-32) mmol/L BUN (7-17) mg/dL Creatinine (0.52-1.04) mg/dL Estimated GFR (>60) mL/min BUN/Creatinine Ratio (6-22) Glucose (80-110) mg/dL Lactate 2.2 H 1.9 (0.7-2.1) mmol/L Calcium (8.4-10.2) mg/dL Magnesium (1.6-2.3) mg/dL Total Bilirubin (0.2-1.3) mg/dL AST (14-36) IU/L ALT (<35) IU/L Alkaline Phosphatase (38-126) U/L Total Creatine Kinase (30-135) U/L CK-MB (CK-2) (<2.37) ng/mL CK-MB (CK-2) Rel Index (1.5-5.0) % Troponin I (0.01-0.034) ng/mL Total Protein (6.3-8.2) g/dL Albumin (3.5-5.0) g/dL Globulin (1.7-4.1) g/dL Albumin/Globulin Ratio (1.0-2.8) Lipase (23-300) U/L Discharge Plan Departure Patient Disposition: Home Clinical Impression: Nausea & vomiting Qualifiers: Vomiting type: unspecified Vomiting Intractability: non-intractable Qualified Code(s): R11.2 - Nausea with vomiting, unspecified Discharge Date/Time: 06/30/19 18:15 Activity Restrictions/Additional Instructions: You have been diagnosed with [nausea and vomiting without abdominal pain. Blood test and chemistry test was unremarkable. There is a mild elevation in liver function test and lactate. The 2nd lactate level is within normal after IV hydration. Your symptoms were resolved and was able to tolerate fluids while in ED. x-ray test on her abdomen did not show bowel obstruction.]. What to do: *Take your medications as directed. Please take Zofran as needed for nausea and vomiting. When her nausea as improved, please hydrate herself with small sips of liquids frequently and you can advance diet as tolerated to bland diet. *Follow up with your primary care provider in 2-3 days, call for an appointment. Let them know you were seen in the ED and that we asked you to be seen in follow up. *Return to ED if you have any new, worsening, or concerning symptoms, such as [chest pain, breathing difficulty, unable to tolerate fluids, lightheadedness, abdominal pain or any acute concerns]. Prescriptions: New ondansetron 4 mg tablet,disintegrating 4 mg PO Q6-8H PRN (Reason: nausea and vomiting) Qty: 10 RF: 0 No Action albuterol sulfate [Ventolin HFA] 90 MCG/PUFF HFA aerosol inhaler 2 puff INH Q4HP PRN (Reason: Shortness Of Breath) Qty: 0 RF: 0 Lantus Solostar U-100 Insulin 100 UNIT/1 ML insulin pen 13 unit SQ QPM Qty: 0 RF: 0 fluticasone propion-salmeterol [Wixela Inhub] 250-50 mcg/dose blister with device 1 inh INHALATION BID RF: 0 metoprolol succinate 50 mg tablet extended release 24 hr 50 mg PO QPM RF: 0 hydrochlorothiazide 25 mg tablet 12.5 mg PO DAILY RF: 0 losartan 100 mg tablet 100 mg PO BEDTIME RF: 0 (DME) NovoTwist 32 gauge x 1/5 needle MISCELLANEOUS RF: 0 metoprolol succinate 100 mg tablet extended release 24 hr 100 mg PO QAM RF: 0 Victoza 3-Graham 0.6 mg/0.1 mL (18 mg/3 mL) pen injector 1.8 mg SUBCUT DAILY RF: 0 Referrals: Sabina Hodges PA-C [Primary Care Provider] - <Wali Gamboa DO - Last Filed: 07/01/19 06:59> Sign Out Provider Sign Out Attestation: Dr Gamboa Co-Sign Statement: I was available for consultation during this patient's emergency department visit. This chart is signed by myself for administrative purposes only. I did not have direct contact with this patient during this visit. They were seen independently by the APC.
[2019-06-30 16:06] LABS: Lactate (Lactic Acid) 2.2 mmol/L (0.7-2.1)
[2019-06-30 16:07] LABS: Alanine Aminotransferase 40 IU/L (<35); Albumin 4.2 g/dL (3.5-5.0); Albumin Globulin Ratio 1.4 (1.0-2.8); Alkaline Phosphatase 86 U/L (38-126); Aspartate Aminotransferase 38 IU/L (14-36); BUN Creatinine Ratio 23.3 (6-22); Bilirubin Total 0.8 mg/dL (0.2-1.3); Blood Urea Nitrogen 14 mg/dL (7-17); Calcium 9.2 mg/dL (8.4-10.2); Carbon Dioxide 30 mmol/L (22-32); Chloride 96 mmol/L (98-107); Creatine Kinase 277 U/L (30-135); Estimated Glomerular Filt Rate > 60.0 mL/min (>60); Glucose 183 mg/dL (80-110); Lipase 206 U/L (23-300); Magnesium 1.6 mg/dL (1.6-2.3); Potassium 3.6 mmol/L (3.4-5.1); Sodium 137 mmol/L (137-145); Total Protein 7.2 g/dL (6.3-8.2)
[2019-06-30 16:19] LABS: Troponin I < 0.012 ng/mL (0.01-0.034)
[2019-06-30 16:22] LABS: CKMB % Relative Index 0.5 % (1.5-5.0); Creatine Kinase MB 1.48 ng/mL (<2.37); HEMOLYSIS 17 (0-50)
[2019-06-30 16:30] VITALS: BP 131/62; PULSE 86; PULSE 93; RESP 11; RESP 21; O2SAT 97
[2019-06-30 17:46] LABS: Lactate (Lactic Acid) 1.9 mmol/L (0.7-2.1)
--- NOTE | 2019-06-30 17:48 | PC.NURSE ---
po challenge, olga well no emesis since admit.
[2019-06-30 17:55] LABS: Reflexed Lactate in 2 Hours Y
[2019-06-30 18:11] VITALS: BP 137/100; PULSE 91
== END 2019-06-30 18:15 | disposition home or self-care (01) ==
PROVIDERS: Emergency Provider Nurse Practitioner Family; PCP Physician Assistant
DX: R11.2 Nausea with vomiting, unspecified (principal); I10 Essential (primary) hypertension; R79.89 Other specified abnormal findings of blood chemistry; R07.9 Chest pain, unspecified
CPT/HCPCS: 36415; 74022; 80053; 82550; 82553; 83605; 83690; 83735; 84484; 85025; 85610; 85730; 93005; 96361; 96374; 99284; 99285; J2405

== ENCOUNTER → 2019-11-26 14:09 | Outpatient (CLI) | payer BC, SELFPAY ==
--- NOTE | 2019-11-26 | DI.RAD.S_ITS ---
PROCEDURE: XR TIBIA FIBULA RT 2V INDICATIONS: WOUND OF LEFT LOWER EXTREMITY, SUBS ENCOUNTER TECHNIQUE: 2 views of the tibia and fibula were acquired. COMPARISON: None. FINDINGS: Bones: No fractures or dislocations. No suspicious bony lesions. Postsurgical changes compatible with right knee arthroplasty. Soft tissues: No suspicious soft tissue calcifications or masses. IMPRESSION: No fracture. No osseous lesion. If symptoms and/or clinical suspicion for pathology persists, further assessment with repeat radiographs (7-10 days) or advanced imaging (e.g. CT, MRI or bone scan) may be helpful. Dictated by: Phoebe Muro MD, PhD on 11/26/2019 at 15:58 Approved by: Phoebe Muro MD, PhD on 11/26/2019 at 15:59
== END ==
PROVIDERS: PCP Physician Assistant; Referring Provider Physician Assistant; Visit Provider Physician Assistant
DX: S81.802D Unspecified open wound, left lower leg, subsequent encounter (principal); X58.XXXD Exposure to other specified factors, subsequent encounter
CPT/HCPCS: 73590

== ENCOUNTER → 2019-12-01 07:27 | Outpatient (CLI) | payer BC, SELFPAY ==
--- NOTE | 2019-12-01 | DI.MRI.S_ITS ---
PROCEDURE: MR LOWER LEG LT WO/W CON INDICATIONS: Unspecified open wound, left lower leg, subsequent TECHNIQUE: Noncontrast coronal T1 spin echo and STIR, sagittal T1 spin echo with fat saturation and STIR, axial T1 spin echo and T2 fast spin echo with fat saturation. After the administration of contrast, axial/sagittal/coronal T1 spin echo with fat saturation through the left lower leg . COMPARISON: [facility], , [email or web address] JOINT WWO CONTRAST, 09/22/2015, 7:52. FINDINGS: Image quality: Excellent. Bones: Postsurgical changes are seen from bilateral total knee arthroplasties with resultant metallic artifact mildly compromises evaluation of the surrounding structures. There is no acute trabecular bone injury. No osseous edema or enhancement is seen to suggest active osteomyelitis. Soft tissues: A skin marker is seen at the lateral aspect of the calf. No significant abnormality is seen in the adjacent soft tissues. Mild subcutaneous scarring is seen in the anterolateral aspect of the distal lower leg in the region of the previously seen wound on the prior MRI from 09/22/2015. There is minimal associated skin thickening and enhancement. There is mild nonspecific subcutaneous edema throughout the distal portion of the lower leg that is slightly more prominent laterally. No discrete fluid collection is seen. No intramuscular fascial edema or enhancement is seen. A circumscribed fatty lesion is seen at the distal medial aspect of the medial gastrocnemius muscle measuring 6.9 x 3.3 x 1.6 cm, most likely representing a benign intramuscular lipoma. No suspicious soft tissue component or enhancement is identified. IMPRESSION: 1. Mild nonspecific subcutaneous edema is seen in the distal portion of the lower leg, which may be secondary to mild cellulitis, systemic edema, or dependent edema. No discrete fluid collection or abscess is identified. There are no signs of osteomyelitis. 2. 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 Dictated by: Bal Bonilla M.D. on 12/01/2019 at 9:25 Approved by: Bal Bonilla M.D. on 12/01/2019 at 9:43
== END ==
PROVIDERS: PCP Physician Assistant; Referring Provider Physician Assistant; Visit Provider Physician Assistant
DX: S81.802D Unspecified open wound, left lower leg, subsequent encounter (principal); D17.24 Benign lipomatous neoplasm of skin and subcutaneous tissue of left leg; Z96.653 Presence of artificial knee joint, bilateral
CPT/HCPCS: 73720

== ENCOUNTER → 2020-02-08 08:54 | Outpatient (CLI) | payer BC, SELFPAY | PROVIDERS: PCP Physician Assistant; Referring Provider Physician Assistant; Visit Provider Family Medicine | DX: I87.2 Venous insufficiency (chronic) (peripheral) (principal); L97.811 Non-pressure chronic ulcer of other part of right lower leg limited to breakdown of skin; L97.821 Non-pressure chronic ulcer of other part of left lower leg limited to breakdown of skin; E11.65 Type 2 diabetes mellitus with hyperglycemia | CPT/HCPCS: 11042; 87070; 87077; 87147; 87186; 87205; 99203; 99213 ==

== ENCOUNTER → 2020-02-10 09:25 | Outpatient (CLI) | payer BC, SELFPAY ==
--- NOTE | 2020-02-10 | DI.ECHO.S_ITS ---
[facility]---------+ [facility] +---------+ : : [address] : [address] : : : : [id number] : : : : Phone: [phone]---------+ Echocardiogram Report + + :Name: MIRANDA CHEN Study Date: 02/10/2020 Height: 63 in : :[facility] Weight: 198 lb : : Gender: Female BSA: 1.9 m2 : :: 1940 Age: 79 yrs BP: 155/78 mmHg: :Reason For Study: shortness of breath : :Ordering Physician: TAMMI, : :ANNA Performed By: Olive Barrera : :Referring: ANNA CADENA : + + Interpretation Summary Right ventricular systolic function remains normal with an estimated ejection fraction of 65 to 70% without any focal wall motion abnormality. There is borderline concentric LVH. Diastolic function suggests a relaxation abnormality with probable normal filling pressures. There has been no significant change from the previous exam. The right ventricle appears normal and unchanged from the previous study. Right ventricular systolic pressure cannot be estimated but the CVP is likely around 3 mmHg. Both atria are normal in size and measure smaller compared to the previous study. The aortic valve is moderately calcified with mild aortic stenosis with a peak velocity of 2.5 m/s and a mean gradient of 14 mmHg, progressive since the previous study. There is no other significant valvular abnormality. Procedure: A two-dimensional transthoracic echocardiogram with color flow and Doppler was performed. The study quality was technically adequate. The patient had an echocardiogram, but there is no comparison study available. Left Ventricle: The left ventricle is normal in size. There is borderline concentric left ventricular hypertrophy. The ejection fraction is estimated to be 65-70%. Left ventricular systolic function is normal without focal wall motion abnormalities. Diastolic parameters suggest a relaxation abnormality of the left ventricle, consistent with probable normal filling pressures. There has been no significant change since the previous study. Right Ventricle: The right ventricle is normal in size and function. This is unchanged compared to the previous study. Atria: Both atria are normal in size. Both atria have mildly decreased in size since the prior echo exam. There is no Doppler evidence for an interatrial shunt. Mitral Valve: There is mild mitral annular calcification. The mitral valve leaflets appear mildly thickened, but open well. There is trace mitral regurgitation. Aortic Valve: The aortic valve is not well visualized. The aortic valve is moderately calcified. There is mildly reduced leaflet mobility. There is mild aortic stenosis. The aortic valve mean gradient is 14 mmHg. The peak aortic velocity is 2.5 m/sec. The calculated aortic valve area is 1.4 cm2. This is progressive compared to the previous study. No aortic regurgitation is present. Tricuspid Valve: The tricuspid valve is normal in structure and function. Pulmonary artery pressures cannot be estimated because of the lack of a measurable TR jet velocity but the IVC suggests a CVP of around 3 mmHg. Pulmonic Valve: The pulmonic valve is not well visualized. There is no pulmonic valvular regurgitation. There is no other significant valvular heart disease. Great Vessels: The aortic root is normal size. The dimensions of the ascending aorta are normal. The IVC is of normal diameter and collapses greater than 50% with a sniff. This suggests a low right atrial pressure of 3 mm Hg. Pericardium/ Pleura There is no pericardial effusion. There is no pleural effusion. MMode/2D Measurements & Calculations LVIDd: 4.1 cm LVOT diam: 2.2 cm LVIDs: 2.6 cm Ao root diam: 3.0 cm FS: 38.1 % asc Aorta Diam: 3.0 cm EPSS: 0.52 cm Ao Arch Diam (Prox Trans): 2.0 cm IVSd: 1.1 cm LVPWd: 1.0 cm LV duval. diameter/BSA (cm/m^2): 2.2 LV sys. diameter/BSA (cm/m^2): 1.3 LA A2 area: 20.6 cm2 RA long axis: 4.7 cm LA A4 area: 16.5 cm2 RA area: 11.4 cm2 LA length (vol): 5.3 cm RA vol: 23.7 ml LA vol: 54.9 ml RA : 12.3 ml/m2 LA vol index: 28.5 ml/m2 IVC diam: 1.6 cm RVD1 (basal): 2.9 cm TAPSE: 1.7 cm Doppler Measurements & Calculations Ao V2 max: 246.1 cm/sec LVOT Max Ryan: 89.4 cm/sec Ao V2 mean: 175.6 cm/sec LV V1 max P.2 mmHg Ao max P.2 mmHg LV V1 VTI: 20.3 cm Ao mean P.7 mmHg STEVE(I,D): 1.5 cm2 Ao V2 VTI: 53.8 cm STEVE(V,D): 1.4 cm2 sev ratio: 0.38 STEVE indexed to BSA (cm^2/m^2): 0.77 MV E max ryan: 89.9 cm/sec PA V2 max: 87.7 cm/sec MV A max ryan: 120.4 cm/sec PA V2 mean: 65.4 cm/sec MV E/A: 0.75 PA mean P.8 mmHg Med Peak E' Ryan: 4.3 cm/sec PA pr(Accel): 20.8 mmHg E/E' med: 20.8 Lat Peak E' Ryan: 5.7 cm/sec E/E' lat: 15.9 E/e' average: 18.3 MV dec time: 0.29 sec SV(LVOT): 80.1 ml Reading Physician:11:44 AM
== END ==
PROVIDERS: PCP Physician Assistant; Referring Provider Physician Assistant; Visit Provider Physician Assistant
DX: I35.0 Nonrheumatic aortic (valve) stenosis (principal); R06.02 Shortness of breath
CPT/HCPCS: 93306

== ENCOUNTER → 2020-02-11 10:35 | Outpatient (CLI) | payer BC, SELFPAY | PROVIDERS: PCP Physician Assistant; Referring Provider Physician Assistant; Visit Provider Family Medicine | DX: I87.2 Venous insufficiency (chronic) (peripheral) (principal); L97.811 Non-pressure chronic ulcer of other part of right lower leg limited to breakdown of skin; L97.821 Non-pressure chronic ulcer of other part of left lower leg limited to breakdown of skin | CPT/HCPCS: 29581 ==

== ENCOUNTER → 2020-02-18 11:05 | Outpatient (CLI) | payer BC, SELFPAY | PROVIDERS: PCP Physician Assistant; Referring Provider Physician Assistant; Visit Provider Family Medicine | DX: I87.333 Chronic venous hypertension (idiopathic) with ulcer and inflammation of bilateral lower extremity (principal); L97.811 Non-pressure chronic ulcer of other part of right lower leg limited to breakdown of skin; L97.821 Non-pressure chronic ulcer of other part of left lower leg limited to breakdown of skin | CPT/HCPCS: 29581 ==

== ENCOUNTER → 2020-02-25 09:57 | Outpatient (CLI) | payer BC, SELFPAY | PROVIDERS: PCP Physician Assistant; Referring Provider Physician Assistant; Visit Provider Family Medicine | DX: I87.2 Venous insufficiency (chronic) (peripheral) (principal); L97.811 Non-pressure chronic ulcer of other part of right lower leg limited to breakdown of skin; E11.65 Type 2 diabetes mellitus with hyperglycemia; B96.5 Pseudomonas (aeruginosa) (mallei) (pseudomallei) as the cause of diseases classified elsewhere; L08.9 Local infection of the skin and subcutaneous tissue, unspecified | CPT/HCPCS: 11042; 87070; 87075; 87077; 87186; 87205; 99214 ==

== ENCOUNTER → 2020-03-03 09:43 | Outpatient (CLI) | payer BC, SELFPAY | PROVIDERS: PCP Physician Assistant; Referring Provider Physician Assistant; Visit Provider Family Medicine | DX: I87.2 Venous insufficiency (chronic) (peripheral) (principal); L97.811 Non-pressure chronic ulcer of other part of right lower leg limited to breakdown of skin; E11.65 Type 2 diabetes mellitus with hyperglycemia; B96.5 Pseudomonas (aeruginosa) (mallei) (pseudomallei) as the cause of diseases classified elsewhere; L08.9 Local infection of the skin and subcutaneous tissue, unspecified; T50.995A Adverse effect of other drugs, medicaments and biological substances, initial encounter; R00.2 Palpitations | CPT/HCPCS: 11042; 93005; 99214 ==

== ENCOUNTER 2020-03-08 14:54 | Emergency (ER) | payer BC, SELFPAY ==
[2020-03-08] VITALS (8 sets, daily range): BP systolic 183–226; BP diastolic 76–93; PULSE 65–76; RESP 10–20; TEMP 36.8; O2SAT 94–99; BMI 36.6
[2020-03-08] MEDS: ONDANSETRON 4 MG/2 ML INJ (15:22)
[2020-03-08 15:31] LABS: Add Manual Diff / Slide Review NO; Basophils Absolute Auto 100 /uL (0-100); Eosinophils Absolute Auto 200 /uL (0-450); Eosinophils Percent Auto 2.5 % (2-4); Hematocrit 36.1 % (36-46); Hemoglobin 12.3 g/dL (12.0-16.0); Lymphocytes Absolute Auto 1900 /uL (1100-4500); Lymphocytes Percent Auto 21.9 % (25-40); Mean Corpuscular Hemoglobin 29.9 PG (26-34); Mean Corpuscular Volume 88.1 fL (80-100); Monocytes Absolute Auto 900 /uL (0-900); Neutrophils Absolute Auto 5700 /uL (1500-7000); Neutrophils Percent Auto 64.6 % (50-75); Platelet Count 244 X10^3/uL (150-400); Red Cell Distribution Width 12.9 % (11.6-14.8); White Blood Cell Count 8.8 X10^3/uL (4.5-11.0)
[2020-03-08 15:32] LABS: Prothrombin Time 11.4 SECONDS (10.1-12.7)
[2020-03-08] MEDS: MORPHINE 2 MG/ML INJ IV ×2 (15:33→15:57)
[2020-03-08] MEDS: SODIUM CHLORIDE 0.9% 1,000 ML 150 ML IV (15:33)
[2020-03-08 15:35] LABS: PTT Partial Thromboplastin Tim 33 SECONDS (26.4-36.2)
[2020-03-08 15:37] LABS: Alanine Aminotransferase 28 IU/L (<35); Albumin Globulin Ratio 1.3 (1.0-2.8); Alkaline Phosphatase 134 U/L (38-126); Aspartate Aminotransferase 28 IU/L (14-36); BUN Creatinine Ratio 26.4 (6-22); Bilirubin Total 0.6 mg/dL (0.2-1.3); Blood Urea Nitrogen 19 mg/dL (7-17); Calcium 9.1 mg/dL (8.4-10.2); Carbon Dioxide 32 mmol/L (22-32); Chloride 96 mmol/L (98-107); Estimated Glomerular Filt Rate > 60.0 mL/min (>60); Glucose 252 mg/dL (80-110); HEMOLYSIS < 15 (0-50); Lipase 127 U/L (23-300); Potassium 3.9 mmol/L (3.4-5.1); Sodium 134 mmol/L (137-145)
--- NOTE | 2020-03-08 15:51 | PC.NURSE ---
Reports abrupt onset at 1330 today. Nausea/emesis x1.
--- NOTE | 2020-03-08 15:53 | DI.CT.S_ITS ---
PROCEDURE: CT ABDOMEN PELVIS W CON INDICATIONS: right abd pain, mid upper abd pain, flank pain, N/V TECHNIQUE: After the administration of intravenous contrast, 5 mm thick sections acquired from the diaphragm to the symphysis. 5 mm coronal and sagittal reformats were acquired. For radiation dose reduction, the following was used: automated exposure control, adjustment of mA and/or kV according to patient size. COMPARISON: [facility], CT, CT CHEST WO CON, 05/22/2018, 15:11. FINDINGS: Image quality: Excellent. ABDOMEN: Lung bases: Lung bases are clear. Heart size is normal. Solid organs: Liver is normal in size and enhancement. Gallbladder is surgically absent. Biliary system is non dilated. Pancreas enhances normally. Spleen is normal in size and enhancement. Multiple calcified splenic granulomata. There is a stable 2.7 cm left adrenal nodule which has a Hounsfield measurement consistent with water on the prior study, and likely represents an adrenal adenoma. There are multiple relatively sizable right renal stones, including a 9 mm stone floating in the renal pelvis. There is mild right hydronephrosis. There is a 3 mm obstructive proximal right ureteral stone just beyond the UPJ. Peritoneum and bowel: Bowel loops demonstrate normal wall thickness and caliber. No free fluid or air. Sigmoid diverticulosis without evidence of diverticulitis. Nodes and vessels: No retroperitoneal or mesenteric adenopathy by size criteria. Aorta and inferior vena cava are normal in size. Miscellaneous: No ventral hernias. PELVIS: Genitourinary: Bladder wall thickness is normal. Miscellaneous: No inguinal hernias or adenopathy. Bones: No suspicious bony lesions. No vertebral body compression fractures. 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 Remote lumbar fusion. IMPRESSION: 1. Multiple fairly sizable right renal stones. 2. Findings include a 9 mm maximum diameter stone floating in the right renal pelvis. 3. A 3 mm stone obstructs the right ureter at the UPJ, resulting in mild right hydronephrosis. 4. Sigmoid diverticulosis. Dictated by: Rachid Bronson M.D. on 03/08/2020 at 16:32 Approved by: Rachid Bronson M.D. on 03/08/2020 at 16:38
[2020-03-08] MEDS: KETOROLAC 60 MG/2 ML VIAL 15 MG IV (16:42)
--- NOTE | 2020-03-08 17:23 | ED.FEMALEGU ---
HPI - Female Genitourinary <FRANCISCO DobsonP - Last Filed: 03/08/20 22:32> General Chief complaint: Urogenital-Female Stated complaint: right sided pain Time Seen by Provider: 03/08/20 15:16 Source: patient Mode of arrival: Ambulatory Limitations: no limitations History of Present Illness HPI Narrative: This is a 79-year-old male female, nonsmoker, who has history of diabetes, hypertension presents to ED with significant other with chief complain of sudden onset of right flank and abdominal pain which started at 1:30 p.m. today with nausea and 1 episode of vomiting. Patient has history of cholecystectomy. Patient denies similar pain in the past or history of kidney stones. Patient denies urinary symptoms such as dysuria, urgency, burning with urination, or frequency, or hematuria. Denies fever, chills. Patient reports pain as 7/10 and describes as burning sensation. Patient takes insulin, lisinopril, daily baby aspirin. Related Data Home Medications Medication Instructions Recorded Confirmed Lantus Solostar U-100 Insulin 13 unit SQ QPM #0 08/12/17 06/30/19 albuterol sulfate [Ventolin HFA] 2 puff INH Q4HP PRN #0 08/12/17 06/30/19 fluticasone propion-salmeterol 1 inh INHALATION BID 06/30/19 06/30/19 [Wixela Inhub] hydrochlorothiazide 12.5 mg PO DAILY 06/30/19 03/08/20 liraglutide [Victoza 3-Graham] 1.8 mg SUBCUT DAILY 06/30/19 06/30/19 losartan 100 mg PO BEDTIME 06/30/19 03/08/20 metoprolol succinate 50 mg PO QPM 06/30/19 03/08/20 metoprolol succinate 100 mg PO QAM 06/30/19 03/08/20 pen needle, diabetic [NovoTwist] 06/30/19 06/30/19 aspirin [Aspirin Low Dose] 81 mg PO DAILY 03/08/20 03/08/20 cetirizine [Zyrtec] 10 mg PO DAILY 03/08/20 03/08/20 potassium chloride 10 meq PO DAILY 03/08/20 03/08/20 Previous Rx's Medication Instructions Recorded ondansetron 4 mg PO Q6-8H PRN #10 tab 06/30/19 hydrocodone-acetaminophen [Panacea] 1 tab PO Q8H PRN #10 tab 03/08/20 ondansetron 4 - 8 mg PO BID-TID PRN #10 tab 03/08/20 tamsulosin [Flomax] 0.4 mg PO BEDTIME #14 cap 03/08/20 Allergies Allergy/AdvReac Type Severity Reaction Status Date / Time piroxicam [PIROXICAM] Allergy Unknown UNKNOWN Verified 03/08/20 15:10 PER PT cyclobenzaprine AdvReac Mild GI UPSET Verified 03/08/20 15:32 [CYCLOBENZAPRINE] Review of Systems <BRANDYN Dobson - Last Filed: 03/08/20 22:32> Review of Systems Narrative: General: Denies fever, chills, fatigue, malaise, sweats. HEENT: Denies sinus pain, ear pain, sore throat, difficulty swallowing, dizziness. Respiratory: Denies dyspnea, cough, wheezing, hemoptysis, sputum. Cardiovascular: Denies chest pain, palpitations, orthopnea, edema. Gastrointestinal: See HPI : Denies dysuria, frequency, incontinence, hematuria, urinary retention. Musculoskeletal: See HPI Skin: Denies rash, skin lesions, or other. Neurologic: Denies weakness, headache, numbness, change in speech, confusion, seizures, incoordination. Psychiatric: No concerning psychosocial issues. 12-point review of systems is negative except for those stated above. Patient History <BRANDYN Dobson - Last Filed: 03/08/20 22:32> Medical History (Updated 03/08/20 @ 18:07 by BRANDYN Dobson) History of diabetes mellitus (Acute) Hypertension (Acute) Surgical History History of (Acute) History of cholecystectomy (Acute) alcohol intake frequency: 0-2 drinks per day Substance Use Type: does not use Exam <BRANDYN Dobson - Last Filed: 03/08/20 22:32> Narrative Exam Narrative: GEN: Alert, oriented x 3, ill appearing and well-nourished, and in moderate distress from pain. Head: Normal cephalic, atraumatic. No scalp or temporal tenderness, palpable mass or rash. EYES: Pupils are equal, round, and reactive to light and accommodation. Extraocular muscles are intact bilaterally. There is no subconjunctival hemorrhage, exudate and sclera non-icteric. ENT: Hearing grossly intact. Nose without bleeding, purulent discharge or deviation. Facial sinuses nontender to palpate. Mucous membrane dry, no mucosal lesion. Throat without erythema, tonsillar hypertrophy or exudate. Uvula in midline, airway patent. Neck: Trachea in midline. No JVD, non-tender without lymphadenopathy. No masses or thyroid megaly. Supple, non-tender and no meningeal signs. CARDIAC: Normal regular rate and rhythm without murmurs, gallops, or rubs. No chest wall tenderness. No peripheral edema, cyanosis or pallor. Capillary refill is less than 2 seconds. RESPIRATORY: Lungs are clear to auscultate bilaterally. No cough, wheezes, rales, or rhonchi. No stridor, respiratory distress, increase work of breathing, or accessary muscle used. ABD: Abdomen soft and non-distended. Right lower, upper, mid abdomen tender to palpate. No guarding or rebound tenderness to palpate. Bowel sounds are normal in all 4 quadrants. There is no palpable masses or organomegaly. EXT: Full painless ROM of all extremities with no loss of sensation, strength, effusion or edema. SKIN: Warm and with slight diaphoresis. normal color for patient. No erythema, lesions or rash over visible areas. BACK: Nontender without deformity or crepitance. Right flank pain slightly tender to percuss. NEUROLOGICAL: Alert and oriented to place, time and person. Sensation and motor function intact bilaterally. No facial droops, dysphasia. PSYCHIATRIC: Good judgement and reason, without hallucinations, abnormal affect or abnormal behaviors during the examination. Patient is not suicidal. Initial Vital Signs Initial Vital Signs: Vital Signs Temperature 98.2 F 03/08/20 15:06 Pulse Rate 69 03/08/20 15:06 Respiratory Rate 18 03/08/20 15:06 Blood Pressure 226/93 H 03/08/20 15:06 Pulse Oximetry 94 03/08/20 15:06 <Wali Gamboa DO - Last Filed: 03/09/20 07:09> Initial Vital Signs Initial Vital Signs: Vital Signs Temperature 98.2 F 03/08/20 15:06 Pulse Rate 69 03/08/20 15:06 Respiratory Rate 18 03/08/20 15:06 Blood Pressure 226/93 H 03/08/20 15:06 Pulse Oximetry 94 03/08/20 15:06 Scores <[facility] Last Filed: 03/08/20 22:32> GCS Red coma scale eye opening: Spontaneous Red coma scale verbal response: Orientated Red coma scale motor response: Obey commands Red coma scale total score: 15 qSOFA Altered Mental Status (GCS <15): No Respiratory rate greater than/equal to 22: No Systolic blood pressure less than or equal to 100: No qSOFA Total: 0 0-1 Not High Risk 1-3 High risk Course <[facility] Last Filed: 03/08/20 22:32> Orders Ordered: Discontinued Medications Hydromorphone HCl (Dilaudid) 0.5 mg IV NOW ONE Stop: 03/08/20 16:35 Sodium Chloride (Normal Saline 0.9%) 1,000 mls @ 150 mls/hr IV CONT MARILU Last Infusion: 03/08/20 18:21 Dose: 0 mls/hr Documented by: Admin: 03/08/20 15:33 Dose: 150 mls/hr Documented by: MAMI Ketorolac Tromethamine (Toradol) 15 mg IV NOW ONE Stop: 03/08/20 16:35 Last Admin: 03/08/20 16:42 Dose: 15 mg Documented by: MERVAT Morphine Sulfate (Morphine) 2 mg IV NOW ONE Stop: 03/08/20 15:30 Last Admin: 03/08/20 15:33 Dose: 2 mg Documented by: MAMI Morphine Sulfate (Morphine) 2 mg IV NOW ONE Stop: 03/08/20 15:54 Last Admin: 03/08/20 15:57 Dose: 2 mg Documented by: MERVAT Ondansetron HCl (Zofran) 4 mg IV NOW ONE Stop: 03/08/20 16:35 Reevaluation(s) Reevaluation #1: Reports pain resolved after the Toradol administration with good nausea control after the zofran. Waiting for Urine test result. Time: 16:50 Consultations Consultation #1: Consulted Dr. Gamboa for plan for disposition after CT results, lab tests, and urine test results. It was recommended to follow up with the urologist outpatient with strict return precautions. Time: 17:15 Vital Signs Vital signs: Vital Signs - 8 hr 03/08/20 15:06 03/08/20 15:41 03/08/20 16:00 Temperature 98.2 F Pulse Rate 69 68 66 Respiratory Rate 18 13 14 Blood Pressure 226/93 H 190/79 H Pulse Oximetry 94 97 96 03/08/20 16:02 03/08/20 16:05 03/08/20 16:27 Temperature Pulse Rate 68 67 67 Respiratory Rate 14 20 12 Blood Pressure 202/81 H 196/83 H 202/77 H Pulse Oximetry 97 96 97 03/08/20 16:30 03/08/20 18:20 Temperature Pulse Rate 65 76 Respiratory Rate 10 L Blood Pressure 198/81 H 183/76 H Pulse Oximetry 94 97 <Wali Gamboa, DO - Last Filed: 03/09/20 07:09> Orders Ordered: Discontinued Medications Hydromorphone HCl (Dilaudid) 0.5 mg IV NOW ONE Stop: 03/08/20 16:35 Sodium Chloride (Normal Saline 0.9%) 1,000 mls @ 150 mls/hr IV CONT MARILU Last Infusion: 03/08/20 18:21 Dose: 0 mls/hr Documented by: Admin: 03/08/20 15:33 Dose: 150 mls/hr Documented by: MAMI Ketorolac Tromethamine (Toradol) 15 mg IV NOW ONE Stop: 03/08/20 16:35 Last Admin: 03/08/20 16:42 Dose: 15 mg Documented by: MERVAT Morphine Sulfate (Morphine) 2 mg IV NOW ONE Stop: 03/08/20 15:30 Last Admin: 03/08/20 15:33 Dose: 2 mg Documented by: MAMI Morphine Sulfate (Morphine) 2 mg IV NOW ONE Stop: 03/08/20 15:54 Last Admin: 03/08/20 15:57 Dose: 2 mg Documented by: MERVAT Ondansetron HCl (Zofran) 4 mg IV NOW ONE Stop: 03/08/20 16:35 Vital Signs Vital signs: Vital Signs - 8 hr 03/08/20 15:06 03/08/20 15:41 03/08/20 16:00 Temperature 98.2 F Pulse Rate 69 68 66 Respiratory Rate 18 13 14 Blood Pressure 226/93 H 190/79 H Pulse Oximetry 94 97 96 03/08/20 16:02 03/08/20 16:05 03/08/20 16:27 Temperature Pulse Rate 68 67 67 Respiratory Rate 14 20 12 Blood Pressure 202/81 H 196/83 H 202/77 H Pulse Oximetry 97 96 97 03/08/20 16:30 03/08/20 18:20 Temperature Pulse Rate 65 76 Respiratory Rate 10 L Blood Pressure 198/81 H 183/76 H Pulse Oximetry 94 97 MDM - Female Genitourinary <BRANDYN Dobson - Last Filed: 03/08/20 22:32> Differential Diagnosis Differential diagnosis: Likely urinary tract infection, cystitis and other (Kidney stone, appendicitis, pancreatitis) Medical Records Attestation: I reviewed the patient's medical records. Lab Data Attestation: I reviewed the patient's lab results. Result diagrams: 03/08/20 15:19 03/08/20 15:19 Labs: Lab Results 03/08/20 03/08/20 03/08/20 Range/Units 15:19 15:19 15:19 WBC 8.8 (4.5-11.0) X10^3/uL RBC 4.10 (4.0-5.2) X10^6/uL Hgb 12.3 (12.0-16.0) g/dL Hct 36.1 (36-46) % MCV 88.1 (80-100) fL MCH 29.9 (26-34) PG MCHC 34.0 (30-36) % RDW 12.9 (11.6-14.8) % Plt Count 244 (150-400) X10^3/uL Neut % (Auto) 64.6 (50-75) % Lymph % (Auto) 21.9 L (25-40) % Calloway % (Auto) 10.0 (3-14) % Eos % (Auto) 2.5 (2-4) % Baso % (Auto) 1.0 (0-2) % Neut # (Auto) 5700 (0626-1122) /uL Lymph # (Auto) 1900 (6661-6067) /uL Calloway # (Auto) 900 (0-900) /uL Eos # (Auto) 200 (0-450) /uL Baso # (Auto) 100 (0-100) /uL PT 11.4 (10.1-12.7) SECONDS INR 1.0 (0.9-1.3) APTT 33 (26.4-36.2) SECONDS Sodium 134 L (137-145) mmol/L Potassium 3.9 (3.4-5.1) mmol/L Chloride 96 L (98-107) mmol/L Carbon Dioxide 32 (22-32) mmol/L BUN 19 H (7-17) mg/dL Creatinine 0.72 (0.52-1.04) mg/dL Estimated GFR > 60.0 (>60) mL/min BUN/Creatinine Ratio 26.4 H (6-22) Glucose 252 H (80-110) mg/dL Lactate (0.7-2.1) mmol/L Calcium 9.1 (8.4-10.2) mg/dL Total Bilirubin 0.6 (0.2-1.3) mg/dL AST 28 (14-36) IU/L ALT 28 (<35) IU/L Alkaline Phosphatase 134 H (38-126) U/L Total Creatine Kinase (30-135) U/L CK-MB (CK-2) (<2.37) ng/mL CK-MB (CK-2) Rel Index (1.5-5.0) % Troponin I (0.01-0.034) ng/mL Total Protein 7.0 (6.3-8.2) g/dL Albumin 4.0 (3.5-5.0) g/dL Globulin 3.0 (1.7-4.1) g/dL Albumin/Globulin Ratio 1.3 (1.0-2.8) Lipase 127 (23-300) U/L Urine RBC (0-5/HPF) Urine WBC (0-5/HPF) Ur Squamous Epith Cells (0-5/HPF) Ur Transition Epith Cell (0-5/HPF) Ur Renal Epithelial Cell (0-1/HPF) Urine Bacteria (None) Ur Culture Indicated? 03/08/20 03/08/20 03/08/20 Range/Units 15:19 15:19 17:15 WBC (4.5-11.0) X10^3/uL RBC (4.0-5.2) X10^6/uL Hgb (12.0-16.0) g/dL Hct (36-46) % MCV (80-100) fL MCH (26-34) PG MCHC (30-36) % RDW (11.6-14.8) % Plt Count (150-400) X10^3/uL Neut % (Auto) (50-75) % Lymph % (Auto) (25-40) % Calloway % (Auto) (3-14) % Eos % (Auto) (2-4) % Baso % (Auto) (0-2) % Neut # (Auto) (6674-2716) /uL Lymph # (Auto) (1979-9266) /uL Calloway # (Auto) (0-900) /uL Eos # (Auto) (0-450) /uL Baso # (Auto) (0-100) /uL PT (10.1-12.7) SECONDS INR (0.9-1.3) APTT (26.4-36.2) SECONDS Sodium (137-145) mmol/L Potassium (3.4-5.1) mmol/L Chloride (98-107) mmol/L Carbon Dioxide (22-32) mmol/L BUN (7-17) mg/dL Creatinine (0.52-1.04) mg/dL Estimated GFR (>60) mL/min BUN/Creatinine Ratio (6-22) Glucose (80-110) mg/dL Lactate 1.8 (0.7-2.1) mmol/L Calcium (8.4-10.2) mg/dL Total Bilirubin (0.2-1.3) mg/dL AST (14-36) IU/L ALT (<35) IU/L Alkaline Phosphatase (38-126) U/L Total Creatine Kinase 146 H (30-135) U/L CK-MB (CK-2) 1.90 (<2.37) ng/mL CK-MB (CK-2) Rel Index 1.3 L (1.5-5.0) % Troponin I < 0.012 (0.01-0.034) ng/mL Total Protein (6.3-8.2) g/dL Albumin (3.5-5.0) g/dL Globulin (1.7-4.1) g/dL Albumin/Globulin Ratio (1.0-2.8) Lipase (23-300) U/L Urine RBC >100/hpf H (0-5/HPF) Urine WBC 0-1/hpf (0-5/HPF) Ur Squamous Epith Cells 0-1 /hpf (0-5/HPF) Ur Transition Epith Cell 0-1/hpf (0-5/HPF) Ur Renal Epithelial Cell 0-1/hpf (0-1/HPF) Urine Bacteria None seen (None) Ur Culture Indicated? Cult not indicated Urine Dip Bedside Urine Glucose 250 mg/dl Bedside Urine Bilirubin - Negative Bedside Urine Ketone - Negative Urine Specific [place] 1.015 Bedside Urine Occult Blood +++ Bedside Urine pH 7 Bedside Urine Protein - Negative Bedside Urine Urobilinogen - Negative Bedside Urine Nitrite - Negative Bedside Urine Leukocytes - Negative Esterase Imaging Data CT-KUB: Radiologist's Impression: Mandy Stratton 79 F [address] [place] [address] CT Scan Report Signed Patient: Mandy Stratton MMR#: [id number] : [id number] Age/Sex: 79 / FDate of Service: 03/08/20 Loc: ED Accession Number: [id number] Procedure: CT abdomen pelvis w con Ordering Provider: Didier Zapata PROCEDURE: CT ABDOMEN PELVIS W CON INDICATIONS: right abd pain, mid upper abd pain, flank pain, N/V TECHNIQUE: After the administration of intravenous contrast, 5 mm thick sections acquired from the diaphragm to the symphysis. 5 mm coronal and sagittal reformats were acquired. For radiation dose reduction, the following was used: automated exposure control, adjustment of mA and/or kV according to patient size. COMPARISON: [facility], CT, CT CHEST WO CON, 05/22/2018, 15:11. FINDINGS: Image quality: Excellent. ABDOMEN: Lung bases: Lung bases are clear. Heart size is normal. Solid organs: Liver is normal in size and enhancement. Gallbladder is surgically absent. Biliary system is non dilated. Pancreas enhances normally. Spleen is normal in size and enhancement. Multiple calcified splenic granulomata. There is a stable 2.7 cm left adrenal nodule which has a Hounsfield measurement consistent with water on the prior study, and likely represents an adrenal adenoma. There are multiple relatively sizable right renal stones, including a 9 mm stone floating in the renal pelvis. There is mild right hydronephrosis. There is a 3 mm obstructive proximal right ureteral stone just beyond the UPJ. Peritoneum and bowel: Bowel loops demonstrate normal wall thickness and caliber. No free fluid or air. Sigmoid diverticulosis without evidence of diverticulitis. Nodes and vessels: No retroperitoneal or mesenteric adenopathy by size criteria. Aorta and inferior vena cava are normal in size. Miscellaneous: No ventral hernias. PELVIS: Genitourinary: Bladder wall thickness is normal. Miscellaneous: No inguinal hernias or adenopathy. Bones: No suspicious bony lesions. No vertebral body compression fractures. 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 Remote lumbar fusion. IMPRESSION: 1. Multiple fairly sizable right renal stones. 2. Findings include a 9 mm maximum diameter stone floating in the right renal pelvis. 3. A 3 mm stone obstructs the right ureter at the UPJ, resulting in mild right hydronephrosis. 4. Sigmoid diverticulosis. Dictated by: Rachid Bronson M.D. on 03/08/2020 at 16:32 Approved by: Rachid Bronson M.D. on 03/08/2020 at 16:38 ECG Data Attestation: I personally reviewed and interpreted this ECG as follows: Prior ECG tracings: available for review Interpretation: Sinus rhythm rate at 66. Normal [place]. [place] interval 215, QRS duration 93, QT/QTC 402/416. No acute ST changes MDM Narrative Medical decision making narrative: This is a 79-year-old female who presents to ED with sudden onset of right flank pain with nausea and vomiting with right quadrant pain and epigastric pain since this afternoon. No history of kidney stones in the past. Patient has significantly elevated blood pressure while ED which decreased mildly after the pain and nauseas have been controlled. She denies chest pain or breathing difficulty. No leukocytosis. Stable H&H. Test but slightly elevated BUN of 19 and BUN/creatinine ratio of 26.4. Patient's oral mucous membrane was dried per exam. Hyperglycemia of 252. Mildlt decreased sodium of 134 and chloride of 96. Mild elevation in alk phosphatase of 134 and lipase of 127. Cardiac enzymes were negative. Patient was able to provide urine sample after 1 L of normal saline and no indications for UTI/bladder infection. Abdomen/pelvis CT shows multiple fairly sizable right renal stones including 9 mm in renal pelvis and 3 mm of obstructive proximal right ureter stone just beyond the UPJ. Incidental findings of sigmoid diverticulosis without indications for diverticulitis and left adrenal adenoma. Pain and nausea well managed after the Toradol IV, Morphine and two doses of Zofran. Patient advised to follow-up with primary care physician for elevated blood pressure in ED. advised to follow up with Dr. Russell out patiently. She was discharged to home with Panacea, Zofran and Flomax to hydrate adequately orally. Return precautions were discussed with patient and she verbalized understanding and agreement with the treatment plan. <Wali Gamboa, - Last Filed: 03/09/20 07:09> Lab Data Labs: Lab Results 03/08/20 03/08/20 03/08/20 Range/Units 15:19 15:19 15:19 WBC 8.8 (4.5-11.0) X10^3/uL RBC 4.10 (4.0-5.2) X10^6/uL Hgb 12.3 (12.0-16.0) g/dL Hct 36.1 (36-46) % MCV 88.1 (80-100) fL MCH 29.9 (26-34) PG MCHC 34.0 (30-36) % RDW 12.9 (11.6-14.8) % Plt Count 244 (150-400) X10^3/uL Neut % (Auto) 64.6 (50-75) % Lymph % (Auto) 21.9 L (25-40) % Calloway % (Auto) 10.0 (3-14) % Eos % (Auto) 2.5 (2-4) % Baso % (Auto) 1.0 (0-2) % Neut # (Auto) 5700 (0504-5766) /uL Lymph # (Auto) 1900 (4827-7719) /uL Calloway # (Auto) 900 (0-900) /uL Eos # (Auto) 200 (0-450) /uL Baso # (Auto) 100 (0-100) /uL PT 11.4 (10.1-12.7) SECONDS INR 1.0 (0.9-1.3) APTT 33 (26.4-36.2) SECONDS Sodium 134 L (137-145) mmol/L Potassium 3.9 (3.4-5.1) mmol/L Chloride 96 L (98-107) mmol/L Carbon Dioxide 32 (22-32) mmol/L BUN 19 H (7-17) mg/dL Creatinine 0.72 (0.52-1.04) mg/dL Estimated GFR > 60.0 (>60) mL/min BUN/Creatinine Ratio 26.4 H (6-22) Glucose 252 H (80-110) mg/dL Lactate (0.7-2.1) mmol/L Calcium 9.1 (8.4-10.2) mg/dL Total Bilirubin 0.6 (0.2-1.3) mg/dL AST 28 (14-36) IU/L ALT 28 (<35) IU/L Alkaline Phosphatase 134 H (38-126) U/L Total Creatine Kinase (30-135) U/L CK-MB (CK-2) (<2.37) ng/mL CK-MB (CK-2) Rel Index (1.5-5.0) % Troponin I (0.01-0.034) ng/mL Total Protein 7.0 (6.3-8.2) g/dL Albumin 4.0 (3.5-5.0) g/dL Globulin 3.0 (1.7-4.1) g/dL Albumin/Globulin Ratio 1.3 (1.0-2.8) Lipase 127 (23-300) U/L Urine RBC (0-5/HPF) Urine WBC (0-5/HPF) Ur Squamous Epith Cells (0-5/HPF) Ur Transition Epith Cell (0-5/HPF) Ur Renal Epithelial Cell (0-1/HPF) Urine Bacteria (None) Ur Culture Indicated? 03/08/20 03/08/20 03/08/20 Range/Units 15:19 15:19 17:15 WBC (4.5-11.0) X10^3/uL RBC (4.0-5.2) X10^6/uL Hgb (12.0-16.0) g/dL Hct (36-46) % MCV (80-100) fL MCH (26-34) PG MCHC (30-36) % RDW (11.6-14.8) % Plt Count (150-400) X10^3/uL Neut % (Auto) (50-75) % Lymph % (Auto) (25-40) % C[place]ay % (Auto) (3-14) % Eos % (Auto) (2-4) % Baso % (Auto) (0-2) % Neut # (Auto) (1794-3529) /uL Lymph # (Auto) (8930-3530) /uL Calloway # (Auto) (0-900) /uL Eos # (Auto) (0-450) /uL Baso # (Auto) (0-100) /uL PT (10.1-12.7) SECONDS INR (0.9-1.3) APTT (26.4-36.2) SECONDS Sodium (137-145) mmol/L Potassium (3.4-5.1) mmol/L Chloride (98-107) mmol/L Carbon Dioxide (22-32) mmol/L BUN (7-17) mg/dL Creatinine (0.52-1.04) mg/dL Estimated GFR (>60) mL/min BUN/Creatinine Ratio (6-22) Glucose (80-110) mg/dL Lactate 1.8 (0.7-2.1) mmol/L Calcium (8.4-10.2) mg/dL Total Bilirubin (0.2-1.3) mg/dL AST (14-36) IU/L ALT (<35) IU/L Alkaline Phosphatase (38-126) U/L Total Creatine Kinase 146 H (30-135) U/L CK-MB (CK-2) 1.90 (<2.37) ng/mL CK-MB (CK-2) Rel Index 1.3 L (1.5-5.0) % Troponin I < 0.012 (0.01-0.034) ng/mL Total Protein (6.3-8.2) g/dL Albumin (3.5-5.0) g/dL Globulin (1.7-4.1) g/dL Albumin/Globulin Ratio (1.0-2.8) Lipase (23-300) U/L Urine RBC >100/hpf H (0-5/HPF) Urine WBC 0-1/hpf (0-5/HPF) Ur Squamous Epith Cells 0-1 /hpf (0-5/HPF) Ur Transition Epith Cell 0-1/hpf (0-5/HPF) Ur Renal Epithelial Cell 0-1/hpf (0-1/HPF) Urine Bacteria None seen (None) Ur Culture Indicated? Cult not indicated Urine Dip Bedside Urine Glucose 250 mg/dl Bedside Urine Bilirubin - Negative Bedside Urine Ketone - Negative Urine Specific [place] 1.015 Bedside Urine Occult Blood +++ Bedside Urine pH 7 Bedside Urine Protein - Negative Bedside Urine Urobilinogen - Negative Bedside Urine Nitrite - Negative Bedside Urine Leukocytes - Negative Esterase Discharge Plan Departure Patient Disposition: Home Clinical Impression: Ureteral calculus, Kidney stone on right side Hydronephrosis Qualifiers: Hydronephrosis type: with ureteropelvic junction obstruction Qualified Code(s): Q62.11 - Congenital occlusion of ureteropelvic junction Discharge Date/Time: 03/08/20 18:20 Instructions: DI for Kidney Stones, DI for Hydronephrosis-Adult Activity Restrictions/Additional Instructions: You have been diagnosed with [several fairly sizable right renal stones including 9 mm maximum diameter stone floating in the right renal pelvis and 3 mm stone obstructing right ureter at the UPJ causing mild right hydronephrosis. There is incidental finding of sigmoid diverticulosis without evidence of diverticulitis and left adrenal adenoma. No indications for bladder infection.]. What to do: *Take your medications as directed. Please take [id number] Tylenol and or Motrin as needed for discomfort. For severe pain not managed with Motrin, please take Panacea as needed. This is narcotic pain medications and cause drowsiness and constipation. Please do not drive, drink alcohol, or operate heavy equipments while your on this medication. You can take [id number] stool softener when you on this medications. Please take Zofran as needed for nausea. Hydrate adequately to help passing stones. Please start taking Flomax starting tonight daily. This medication is are transmitted to [facility] in [facility]. *Follow up with your primary care provider in 2-3 days, call for an appointment. Please monitor blood pressure as talked and follow up with your PCP. Please contact Dr. Russell, urologist tomorrow. Let them know you were seen in the ED and that we asked you to be seen in follow up. *Return to ED if you have any new, worsening, or concerning symptoms, such as [fever, unable to tolerate fluids or medications, pain not managed with medications, difficulty voiding, chest pain, breathing difficulty, or any acute concerns]. Prescriptions: New ondansetron 4 mg tablet,disintegrating 4 - 8 mg PO BID-TID PRN (Reason: nausea and vomiting) Qty: 10 RF: 0 tamsulosin [Flomax] 0.4 mg capsule 0.4 mg PO BEDTIME Qty: 14 RF: 0 hydrocodone-acetaminophen [Panacea] 5-325 mg tablet 1 tab PO Q8H PRN (Reason: pain) Qty: 10 RF: 0 No Action albuterol sulfate [Ventolin HFA] 90 MCG/PUFF HFA aerosol inhaler 2 puff INH Q4HP PRN (Reason: Shortness Of Breath) Qty: 0 RF: 0 Lantus Solostar U-100 Insulin 100 UNIT/1 ML insulin pen 13 unit SQ QPM Qty: 0 RF: 0 potassium chloride 10 mEq Capsule, Extended Release 10 meq PO DAILY RF: 0 aspirin [Aspirin Low Dose] 81 mg Tablet,Delayed Release (Dr/Ec) 81 mg PO DAILY RF: 0 Zyrtec 10 mg Capsule 10 mg PO DAILY RF: 0 fluticasone propion-salmeterol [Wixela Inhub] 250-50 mcg/dose blister with device 1 inh INHALATION BID RF: 0 metoprolol succinate 50 mg tablet extended release 24 hr 50 mg PO QPM RF: 0 hydrochlorothiazide 25 mg tablet 12.5 mg PO DAILY RF: 0 losartan 100 mg tablet 100 mg PO BEDTIME RF: 0 (DME) NovoTwist 32 gauge x 1/5 needle MISCELLANEOUS RF: 0 metoprolol succinate 100 mg tablet extended release 24 hr 100 mg PO QAM RF: 0 Victoza 3-Graham 0.6 mg/0.1 mL (18 mg/3 mL) pen injector 1.8 mg SUBCUT DAILY RF: 0 ondansetron 4 mg tablet,disintegrating 4 mg PO Q6-8H PRN (Reason: nausea and vomiting) Qty: 10 RF: 0 Referrals: Sabina Hodges PA-C [Primary Care Provider] - Maria Del Carmen Russell MD [Physician] - <Wali Lanker, DO - Last Filed: 03/09/20 07:09> Cosign ED Attending Cosignature Attestation: Dr Gamboa Co-Sign Statement: I was available for consultation during this patient's emergency department visit. This chart is signed by myself for administrative purposes only. I did not have direct contact with this patient during this visit. They were seen independently by the APC.
[2020-03-08 17:37] LABS: Creatine Kinase 146 U/L (30-135)
[2020-03-08 17:50] LABS: Troponin I < 0.012 ng/mL (0.01-0.034)
[2020-03-08 17:52] LABS: Bacteria Urine None Seen; RBC Urine >100/HPF (0-5/HPF); Renal Epithelial Cells Urine 0-1/HPF (0-1/HPF); Squamous Epithelial Cell Urine 0-1 /HPF (0-5/HPF); Transitional Epi Cells Urine 0-1/HPF (0-5/HPF); WBC Urine 0-1/HPF (0-5/HPF)
[2020-03-08 17:53] LABS: Culture Indicated Urine Cult Not Indicated
[2020-03-08 17:53] LABS: CKMB % Relative Index 1.3 % (1.5-5.0)
[2020-03-08 18:37] LABS: Lactate (Lactic Acid) 1.8 mmol/L (0.7-2.1)
== END 2020-03-08 18:20 | disposition home or self-care (01) ==
PROVIDERS: Emergency Provider Nurse Practitioner Family; PCP Physician Assistant
DX: N13.2 Hydronephrosis with renal and ureteral calculous obstruction (principal); Z87.442 Personal history of urinary calculi; R73.9 Hyperglycemia, unspecified; R11.2 Nausea with vomiting, unspecified; I10 Essential (primary) hypertension; Z79.82 Long term (current) use of aspirin; R10.13 Epigastric pain
CPT/HCPCS: 74177; 80053; 81003; 81015; 82550; 82553; 83605; 83690; 84484; 85025; 85610; 85730; 93005; 93010; 96361; 96374; 96375; 96376; 99284; J1885; J2270; J2405; Q9967

== ENCOUNTER → 2020-03-10 13:17 | Outpatient (CLI) | payer BC, SELFPAY | PROVIDERS: PCP Physician Assistant; Referring Provider Physician Assistant; Visit Provider Family Medicine | DX: I87.2 Venous insufficiency (chronic) (peripheral) (principal); L97.811 Non-pressure chronic ulcer of other part of right lower leg limited to breakdown of skin; E11.65 Type 2 diabetes mellitus with hyperglycemia; B96.5 Pseudomonas (aeruginosa) (mallei) (pseudomallei) as the cause of diseases classified elsewhere; L08.9 Local infection of the skin and subcutaneous tissue, unspecified | CPT/HCPCS: 11042; 87070; 87205; 99212; 99213 ==

== ENCOUNTER → 2020-03-17 10:41 | Outpatient (CLI) | payer BC, SELFPAY | PROVIDERS: PCP Physician Assistant; Referring Provider Physician Assistant; Visit Provider Family Medicine | DX: I87.2 Venous insufficiency (chronic) (peripheral) (principal); L97.811 Non-pressure chronic ulcer of other part of right lower leg limited to breakdown of skin; E11.65 Type 2 diabetes mellitus with hyperglycemia | CPT/HCPCS: 11042 ==

== ENCOUNTER → 2020-03-24 09:33 | Outpatient (CLI) | payer BC, SELFPAY | PROVIDERS: PCP Physician Assistant; Referring Provider Physician Assistant; Visit Provider Family Medicine | DX: I87.2 Venous insufficiency (chronic) (peripheral) (principal); L97.811 Non-pressure chronic ulcer of other part of right lower leg limited to breakdown of skin; E11.65 Type 2 diabetes mellitus with hyperglycemia | CPT/HCPCS: 11042 ==

== ENCOUNTER → 2020-03-31 13:35 | Outpatient (CLI) | payer BC, SELFPAY | PROVIDERS: PCP Physician Assistant; Referring Provider Physician Assistant; Visit Provider Family Medicine | DX: I87.2 Venous insufficiency (chronic) (peripheral) (principal); L97.811 Non-pressure chronic ulcer of other part of right lower leg limited to breakdown of skin; E11.65 Type 2 diabetes mellitus with hyperglycemia | CPT/HCPCS: 29581; 99213 ==

== ENCOUNTER → 2020-04-07 10:41 | Outpatient (CLI) | payer BC, SELFPAY | PROVIDERS: PCP Physician Assistant; Referring Provider Physician Assistant; Visit Provider Family Medicine | DX: I87.2 Venous insufficiency (chronic) (peripheral) (principal); L97.811 Non-pressure chronic ulcer of other part of right lower leg limited to breakdown of skin; E11.65 Type 2 diabetes mellitus with hyperglycemia | CPT/HCPCS: 29581; 99213 ==

== ENCOUNTER → 2020-04-13 09:04 | Outpatient (CLI) | payer BC, SELFPAY | PROVIDERS: PCP Physician Assistant; Referring Provider Physician Assistant; Visit Provider Family Medicine | DX: I87.2 Venous insufficiency (chronic) (peripheral) (principal); L97.811 Non-pressure chronic ulcer of other part of right lower leg limited to breakdown of skin | CPT/HCPCS: 29581 ==

== ENCOUNTER → 2020-04-21 10:06 | Outpatient (CLI) | payer BC, SELFPAY | PROVIDERS: PCP Physician Assistant; Referring Provider Physician Assistant; Visit Provider Family Medicine | DX: I87.2 Venous insufficiency (chronic) (peripheral) (principal); E11.622 Type 2 diabetes mellitus with other skin ulcer | CPT/HCPCS: 99213 ==

== ENCOUNTER → 2020-04-22 08:23 | Outpatient (CLI) | payer BC, SELFPAY ==
--- NOTE | 2020-04-22 | DI.MG.S_ITS ---
BILATERAL DIGITAL SCREENING MAMMOGRAM 3D/2D WITH CAD: 04/22/2020 CLINICAL: Routine screening. Comparison is made to exams dated: 03/11/2019 mammogram, 10/16/2017 mammogram, 04/18/2016 mammogram - [facility], and 01/30/2013 mammogram - [facility]. There are scattered fibroglandular elements in both breasts. Current study was also evaluated with a Computer Aided Detection (CAD) system. There are benign calcifications in both breasts. There also are benign post operative findings in the left breast. No significant masses, calcifications, or other findings are seen in either breast. There has been no significant interval change. IMPRESSION: BENIGN There is no mammographic evidence of malignancy. A 1 year screening mammogram is recommended. This exam was interpreted at Station ID: [id number]. NOTE: For mammograms, a report in lay terms will be sent to the patient. Approximately 15% of breast malignancies will not be visualized mammographically. In the management of a palpable breast mass, a negative mammogram must not discourage biopsy of a clinically suspicious lesion. Electronically Signed By: Jigar gimenez/justyna:04/22/2020 09:01:04 letter sent: Normal Exam ACR BI-RADS Category 2: Benign Finding(s) [id number]
== END ==
PROVIDERS: PCP Physician Assistant; Referring Provider Physician Assistant; Visit Provider Physician Assistant
DX: Z12.31 Encounter for screening mammogram for malignant neoplasm of breast (principal)
CPT/HCPCS: 77063; 77067

== ENCOUNTER → 2020-08-12 19:00 | Outpatient (ROUT) | payer BC, SELFPAY ==
[2020-08-12 19:24] LABS: Add Manual Diff / Slide Review NO; Basophils Absolute Auto 100 /uL (0-100); Basophils Percent Auto 1.1 % (0-2); Eosinophils Absolute Auto 200 /uL (0-450); Eosinophils Percent Auto 3.1 % (2-4); Hematocrit 37.5 % (36-46); Hemoglobin 12.5 g/dL (12.0-16.0); Lymphocytes Absolute Auto 2200 /uL (1100-4500); Lymphocytes Percent Auto 27.9 % (25-40); Mean Corpuscular HGB Conc 33.3 % (30-36); Mean Corpuscular Hemoglobin 30.2 PG (26-34); Mean Corpuscular Volume 90.9 fL (80-100); Monocytes Absolute Auto 600 /uL (0-900); Monocytes Percent Auto 7.4 % (3-14); Neutrophils Absolute Auto 4800 /uL (1500-7000); Neutrophils Percent Auto 60.5 % (50-75); Platelet Count 244 X10^3/uL (150-400); Red Blood Cell Count 4.12 X10^6/uL (4.0-5.2); Red Cell Distribution Width 13.4 % (11.6-14.8); White Blood Cell Count 7.9 X10^3/uL (4.5-11.0)
[2020-08-12 19:31] LABS: Alanine Aminotransferase 34 IU/L (<35); Albumin Globulin Ratio 1.6 (1.0-2.8); Alkaline Phosphatase 112 U/L (38-126); Aspartate Aminotransferase 32 IU/L (14-36); BUN Creatinine Ratio 30.6 (6-22); Bilirubin Total 0.3 mg/dL (0.2-1.3); Blood Urea Nitrogen 22 mg/dL (7-17); Calcium 9.1 mg/dL (8.4-10.2); Carbon Dioxide 31 mmol/L (22-32); Chloride 98 mmol/L (98-107); Cholesterol 162 mg/dL (140-199); Estimated Glomerular Filt Rate > 60.0 mL/min (>60); Globulin 2.5 g/dL (1.7-4.1); Glucose 228 mg/dL (80-110); HDL Cholesterol 44 mg/dL (40-60); HEMOLYSIS < 15 (0-50); Potassium 3.7 mmol/L (3.4-5.1); Sodium 136 mmol/L (137-145); Total Protein 6.5 g/dL (6.3-8.2); Triglycerides 492 mg/dL (35-150)
== END ==
PROVIDERS: PCP Physician Assistant; Visit Provider Physician Assistant
DX: E11.65 Type 2 diabetes mellitus with hyperglycemia (principal); I10 Essential (primary) hypertension; E78.5 Hyperlipidemia, unspecified
CPT/HCPCS: 80053; 80061; 85025

== ENCOUNTER → 2020-09-28 15:16 | Outpatient (CLI) | payer BC, SELFPAY ==
--- NOTE | 2020-09-28 15:19 | DI.CT.S_ITS ---
PROCEDURE: CT ABDOMEN PELVIS WO CON INDICATIONS: Calculus of kidney TECHNIQUE: Noncontrast 5 mm thick sections acquired from the diaphragms to the symphysis. 5 mm thick coronal and sagittal reformats were then performed. For radiation dose reduction, the following was used: automated exposure control, adjustment of mA and/or kV according to patient size. COMPARISON: [facility], CT, CT ABDOMEN PELVIS W CON, 03/08/2020, 16:17. FINDINGS: Image quality: Excellent. Lung bases: Lung bases are clear. Heart size is normal. Urinary system: Both kidneys are normal in size. No kidney stones. No hydronephrosis or perinephric fat stranding. Both ureters appear non-dilated throughout their expected courses. Bladder wall thickness is normal; no calcified bladder stones. A previously present nonobstructive right renal pelvis calculus is no longer visualized, and along the course of the ureters through the retroperitoneum a ureteral calculus is not found. At the low pelvic level metal artifact from bilateral hip arthroplasties precludes clear visualization of the distal ureters and bladder. Other solid organs: Liver is normal in size. Gallbladder is not seen. Pancreas is normal in contours. Spleen is normal in size. No adrenal nodules. Peritoneum and bowel: Unenhanced bowel loops demonstrate normal wall thickness and caliber. No free fluid or air. Nodes and vessels: No retroperitoneal or mesenteric adenopathy by size criteria. Aorta and inferior vena cava are normal in caliber. Abdominal wall: No ventral hernias. Pelvis: No free pelvic fluid. No inguinal hernias or adenopathy. Bones: No suspicious bony lesions. No vertebral body compression fractures. IMPRESSION: A right-sided urinary tract stone appears to have resolved. This was small and nonobstructive and located within the renal pelvis on the right. The current study does not show this calculus to be within the collecting system of the right kidney or along the ureter of the right urinary tract. However, there is extensive metal artifact from bilateral hip arthroplasty devices, which precludes clear visualization of the far distal ureters and bladder. No definite secondary evidence of far distal ureteral stone on the right or bladder calculus is seen. Dictated by: Milton Church M.D. on 09/28/2020 at 16:24 Approved by: Milton Church M.D. on 09/28/2020 at 16:30
== END ==
PROVIDERS: PCP Physician Assistant; Referring Provider Urology; Visit Provider Urology
DX: N20.0 Calculus of kidney (principal); Z96.643 Presence of artificial hip joint, bilateral
CPT/HCPCS: 74176

== ENCOUNTER → 2021-04-24 11:19 | Outpatient (CLI) | payer BC, SELFPAY ==
[2021-04-24 14:06] LABS: COVID19 -Nasal RAPID Negative (Negative)
== END ==
PROVIDERS: PCP Physician Assistant; Referring Provider Nurse Practitioner Family; Visit Provider Nurse Practitioner Family
DX: Z20.822 Contact with and (suspected) exposure to COVID-19 (principal)
CPT/HCPCS: 87635

== ENCOUNTER → 2021-04-25 06:58 | Day surgery (SDC) | payer BC, SELFPAY ==
[2021-04-25] MEDS: PROPARACAINE 0.5% OPHTH SOL 2 DROPS EYE-OP (07:20)
[2021-04-25] MEDS: CATARACT EYE COMPOUND (10 DROPS/SYRINGE) 3 DROPS EYE-OP (07:20)
[2021-04-25 07:22] VITALS: BP 116/72; PULSE 66; RESP 18; TEMP 36.6; O2SAT 116; BMI 31.1
--- NOTE | 2021-04-25 08:02 | P.OP_ITS ---
Operative Date/Time/Diagnoses Pre-op diagnosis: Nuclear Cataract Left eye Post-op diagnosis: same Procedure & Clinicians Same procedure as scheduled: Yes Surgeon: Stephen Rapp Anesthesia Type: MAC +/- and Sedation Operative Notes Procedure in detail: Patient brought to the operating suite. Tetracaine drops placed in the left eye. Marking instrument was used to joshua the vertical and horizontal meridians. Patient was prepped and draped in sterile manner. Wire lid speculum was placed in the eye. Marking instrument was used to joshua the 15 degree meridian. Betad ine drops were placed on the eye. This was irrigated. Lidocaine jelly was placed on the eye. A paracentesis port was created with a side-port blade. 0.1 mL 1% preservative free lidocaine was injected into the anterior chamber. The anterior chamber was deepened with viscoelastic. 2.6 mm keratome was used to create a temporal clear corneal incision. The pupil was floppy and miotic. A 6.25 mm malyugin ring was used to enlarge the pupil. Cystotome and Utrata forceps were used to create continuous tear capsulorrhexis. Balanced salt solution was used to hydro dissect the nucleus. The phacoemulsification handpiece was inserted and the nucleus was removed using the stop and chop technique. The irrigation aspiration handpiece was inserted and the remaining cortex was removed. Anterior chamber was deepened with viscoelastic. An Trejo [id number] intraocular lens with a power of 21.0 was injected into the capsular bag. The lens was rotated to the 15 degree meridian. The malyugin ring was removed. Irrigation aspiration handpiece was inserted and the remaining viscoelastic was removed. Incision was hydrated with balanced salt solution and found to be leak free with pressure with Weck-Dipika sponges. 0.1 mL Vigamox injected anterior chamber. 0.3 mL Kenalog 10 mg was injected subconjunctivally. Lid speculum was removed. The patient left the operating room in excellent condition. Complications: none Post-operative Condition: stable Disposition: same day surgery
--- NOTE | 2021-04-25 08:02 | PM.PREOP ---
Pre-operative Note Interval Note History & Physical reviewed/Exam performed by Physician: Yes Changes to H&P: No
[2021-04-25] MEDS: PHENYLEPHRINE/LIDOCAINE VIAL (OR) 0.2 ML EYE-OP (08:22)
[2021-04-25] MEDS: HYALURONATE SODIUM 30 MG-10 MG/ML SYRINGES 1 BOX INTRAOCULA (08:22)
[2021-04-25] MEDS: MOXIFLOXACIN INJ 4 MG/0.8 ML VIAL 0.5 MG EYE-OP (08:22)
[2021-04-25] MEDS: TRIAMCINOLONE 50 MG/5 ML VIAL INJ (08:23)
[2021-04-25] MEDS: TETRACAINE 0.5% OPHTH DROPS 4 ML 2 DROPS EYE-OP (08:23)
[2021-04-25] MEDS: LIDOCAINE 2% (GLYDO) 6 ML GEL TOP (08:23)
[2021-04-25] MEDS: BALANCED SALT IRRIG SOLN NO.2 500 ML, EPINEPHrine 1 MG IRR (08:23)
[2021-04-25 08:48] VITALS: BP 116/62; PULSE 66; RESP 16; TEMP 36.6; O2SAT 98
== END | disposition home or self-care (01) ==
PROVIDERS: PCP Physician Assistant; Referring Provider Ophthalmology; Visit Provider Ophthalmology
PROC: (CPT 66984; principal; 2021-04-25 08:15)
DX: H25.12 Age-related nuclear cataract, left eye (principal); E11.9 Type 2 diabetes mellitus without complications; I10 Essential (primary) hypertension; Z79.4 Long term (current) use of insulin; J44.9 Chronic obstructive pulmonary disease, unspecified; G47.33 Obstructive sleep apnea (adult) (pediatric); E66.9 Obesity, unspecified; Z68.31 Body mass index [BMI] 31.0-31.9, adult
CPT/HCPCS: 66984; J0171; J2250; J3301; V2788

== ENCOUNTER 2021-05-31 18:10 | Emergency (ER) | payer BC, SELFPAY ==
[2021-05-31] VITALS (17 sets, daily range): BP systolic 98–153; BP diastolic 51–65; PULSE 61–84; RESP 12–36; TEMP 36.2; O2SAT 92–98; BMI 49.4
--- NOTE | 2021-05-31 18:20 | DI.RAD.S_ITS ---
PROCEDURE: XR HIP W PEL IF DONE RT 2V INDICATIONS: fall with right hip pain TECHNIQUE: AP pelvis and lateral view of the left hip acquired. COMPARISON: [facility], CT, CT ABDOMEN PELVIS WO CON, 09/28/2020, 15:36. FINDINGS: Bones: Patient is status post bilateral hip arthroplasty, with hardware components in expected positions. The right hip joint appears congruent without evidence of hardware compromise. The left hip arthroplasty is partially imaged. The visualized bony structures appear intact. Partially imaged lumbar spine fixation hardware with discectomy changes. Soft tissues: Moderate stool burden in the rectosigmoid colon. No suspicious soft tissue densities. IMPRESSION: No acute osseous abnormality. Dictated by: Refugio Sams M.D. on 05/31/2021 at 18:52 Approved by: Refugio Sams M.D. on 05/31/2021 at 18:57
--- NOTE | 2021-05-31 18:21 | DI.RAD.S_ITS ---
PROCEDURE: XR CHEST 1V INDICATIONS: weakness, syncope TECHNIQUE: One view of the chest was acquired. COMPARISON: [facility], CR, XR CHEST 2V, 05/09/2018, 10:00. FINDINGS: Surgical changes and devices: Anterior cervical fixation hardware is noted Lungs and pleura: No consolidation, pleural effusions or pneumothorax. Mediastinum: Mediastinal contours appear normal. Heart size is normal. Bones and chest wall: No suspicious bony lesions. Overlying soft tissues appear unremarkable. IMPRESSION: No acute cardiopulmonary abnormality. Dictated by: Refugio Sams M.D. on 05/31/2021 at 18:46 Approved by: Refugio Sams M.D. on 05/31/2021 at 18:52
--- NOTE | 2021-05-31 18:22 | ED.WEAKNESS ---
HPI - Weakness General Chief complaint: Syncope Stated complaint: Syncope Time Seen by Provider: 05/31/21 18:15 History of Present Illness HPI Narrative: 80-year-old female nonsmoker with history of hypertension and recent diagnosis of COVID-19 presents by EMS for evaluation of a syncopal episode. She had been feeling poorly with a bad appetite for the past few days. Though she is fully immunized including a booster she felt even worse this morning and took a home test which was positive. She denies any new medications or dietary change other than poor intake. She has had no chest pain or shortness of breath. She denies any nausea, vomiting but has had some loose stools. She denies any significant work of breathing. She had been in bed most of the day and stood up and was walking around and felt lightheaded and like she might pass out, her saw this and eased her to the floor though she did injure her right hip some. She denies any head neck or back pain. She was evaluated by EMS brought for evaluation Related Data Home Medications Medication Instructions Recorded Confirmed albuterol sulfate 90 mcg/actuation 2 puff INH Q4HP PRN #0 08/12/17 04/25/21 aerosol inhaler (Ventolin HFA) hydrochlorothiazide 25 mg tablet 12.5 mg PO DAILY 06/30/19 04/25/21 losartan 100 mg tablet 100 mg PO BEDTIME 06/30/19 04/25/21 metoprolol succinate 100 mg 100 mg PO QAM 06/30/19 04/25/21 tablet,extended release 24 hr metoprolol succinate 50 mg 50 mg PO QPM 06/30/19 04/25/21 tablet,extended release 24 hr pen needle, diabetic 32 gauge x 06/30/19 06/30/1905/24 (NovoTwist) aspirin 81 mg tablet,delayed 81 mg PO DAILY 03/08/20 04/25/21 release (Aspirin Low Dose) cetirizine 10 mg capsule (Zyrtec) 10 mg PO DAILY 03/08/20 04/25/21 potassium chloride 10 mEq 10 meq PO DAILY 03/08/20 04/25/21 capsule,extended release semaglutide (Ozempic) 0.25 mg SUBCUT WEEKLY 04/25/21 04/25/21 Allergies Allergy/AdvReac Type Severity Reaction Status Date / Time piroxicam [PIROXICAM] Allergy Unknown UNKNOWN Verified 05/31/21 18:28 PER PT cyclobenzaprine AdvReac Mild GI UPSET Verified 05/31/21 18:28 [CYCLOBENZAPRINE] Review of Systems Review of Systems Narrative: GENERAL: See HPI HEENT: Denies sinus pain, ear pain, sore throat, difficulty swallowing, dizziness. RESPIRATORY: Denies dyspnea, cough, wheezing, hemoptysis, sputum. CARDIOVASCULAR: Denies chest pain, palpitations, orthopnea, edema, GASTROINTESTINAL: See HPI : Denies dysuria, frequency, incontinence, hematuria, urinary retention. MUSCULOSKELETAL: denies weakness, joint pain, or bony pain SKIN: Denies rash, skin lesions, or other NEUROLOGIC: Denies weakness, headache, numbness, change in speech, confusion, seizures, incoordination. PSYCHIATRIC: No concerning psychosocial issues. 12 point review of systems is negative except for those stated above Patient History Medical History History of diabetes mellitus Hypertension Surgical History History of History of cholecystectomy Social History household members: spouse Smoking Status: Never smoker Smoking Status: Never smoker alcohol intake frequency: 0-2 drinks per day Substance Use Type: does not use Exam Narrative Exam Narrative: GENERAL: [80 year old patient appears stated age. Well-developed patient, in mild distress. Appears as if she does not feel well, no significant work of breathing HEAD: Atraumatic. Normocephalic. EYES: Pupils equal round and reactive. Extraocular motions intact. No scleral icterus. No injection or drainage. ENT: Dry mucous membranes. Nose without bleeding, purulent drainage. Throat without erythema, tonsillar hypertrophy or exudate. Airway patent. NECK: Trachea midline. Non tender CARDIOVASCULAR: Regular rate and rhythm without murmurs, gallops, or rubs. RESPIRATORY: Clear to auscultation. Breath sounds equal bilaterally. No wheezes, rales, or rhonchi. GASTROINTESTINAL: Abdomen soft, non-tender, nondistended. EXTREMITIES: No edema or joint tenderness. BACK: Nontender without deformity or crepitance. No flank tenderness. NEURO: AOx3. SKIN: No rash or erythema of visible areas Initial Vital Signs Initial Vital Signs: Vital Signs Temperature 97.2 F L 05/31/21 18:23 Pulse Rate 62 05/31/21 18:23 Respiratory Rate 14 05/31/21 18:23 Blood Pressure 110/54 L 05/31/21 18:23 Pulse Oximetry 98 05/31/21 18:23 Course Orders Ordered: Discontinued Medications Sodium Chloride (Normal Saline 0.9%) 1,000 mls @ 1,000 mls/hr IV BOLUS ONE Stop: 05/31/21 19:19 Last Infusion: 05/31/21 20:21 Dose: 0 mls/hr Documented by: Admin: 05/31/21 19:20 Dose: 1,000 mls/hr Documented by: MAX Sodium Chloride (Normal Saline 0.9%) 1,000 mls @ 1,000 mls/hr IV BOLUS ONE Stop: 05/31/21 21:21 Last Infusion: 05/31/21 22:30 Dose: 0 mls/hr Documented by: Admin: 05/31/21 21:03 Dose: 1,000 mls/hr Documented by: MAX Ondansetron HCl (Ondansetron 4 Mg Odt Prepack) 1 bottle MISC SEEINSTR ONE Stop: 05/31/21 22:11 Last Admin: 05/31/21 22:14 Dose: 1 bottle Documented by: MAX Vital Signs Vital signs: Vital Signs - 8 hr 05/31/21 18:23 05/31/21 18:30 05/31/21 18:31 Temperature 97.2 F L Pulse Rate 63 61 63 Pulse Rate [Orthostatic Lying] Pulse Rate [Orthostatic Sitting] Pulse Rate [Orthostatic Standing] Respiratory Rate 14 19 16 Blood Pressure 110/54 L 110/54 L Blood Pressure [Orthostatic Lying] Blood Pressure [Orthostatic Sitting] Blood Pressure [Orthostatic Standing] Pulse Oximetry 98 95 94 05/31/21 19:00 05/31/21 19:30 05/31/21 19:31 Temperature Pulse Rate 65 66 Pulse Rate [Orthostatic Lying] Pulse Rate [Orthostatic Sitting] Pulse Rate [Orthostatic Standing] Respiratory Rate 20 15 Blood Pressure 116/58 L 136/61 Blood Pressure [Orthostatic Lying] Blood Pressure [Orthostatic Sitting] Blood Pressure [Orthostatic Standing] Pulse Oximetry 92 93 05/31/21 19:41 05/31/21 19:43 05/31/21 19:46 Temperature Pulse Rate 67 68 71 Pulse Rate [Orthostatic Lying] Pulse Rate [Orthostatic Sitting] Pulse Rate [Orthostatic Standing] Respiratory Rate 15 17 36 H Blood Pressure 149/65 H 108/51 L 112/53 L Blood Pressure [Orthostatic Lying] Blood Pressure [Orthostatic Sitting] Blood Pressure [Orthostatic Standing] Pulse Oximetry 97 98 98 05/31/21 19:56 05/31/21 20:00 05/31/21 20:16 Temperature Pulse Rate 66 64 84 Pulse Rate [Orthostatic Lying] 67 Pulse Rate [Orthostatic Sitting] 68 Pulse Rate [Orthostatic Standing] 71 Respiratory Rate 26 H 15 20 Blood Pressure 153/65 H 132/60 Blood Pressure [Orthostatic Lying] 149/65 H Blood Pressure [Orthostatic Sitting] 108/51 L Blood Pressure [Orthostatic Standing] 112/53 L Pulse Oximetry 95 98 92 05/31/21 20:30 05/31/21 20:39 05/31/21 21:00 Temperature Pulse Rate 65 64 64 Pulse Rate [Orthostatic Lying] Pulse Rate [Orthostatic Sitting] Pulse Rate [Orthostatic Standing] Respiratory Rate 12 12 12 Blood Pressure 99/54 L 114/56 L 98/51 L Blood Pressure [Orthostatic Lying] Blood Pressure [Orthostatic Sitting] Blood Pressure [Orthostatic Standing] Pulse Oximetry 95 94 94 05/31/21 21:46 05/31/21 21:49 Temperature Pulse Rate 68 68 Pulse Rate [Orthostatic Lying] Pulse Rate [Orthostatic Sitting] Pulse Rate [Orthostatic Standing] Respiratory Rate 19 16 Blood Pressure 133/58 L Blood Pressure [Orthostatic Lying] Blood Pressure [Orthostatic Sitting] Blood Pressure [Orthostatic Standing] Pulse Oximetry 96 97 MDM - Weakness Lab Data Result diagrams: 05/31/21 18:17 05/31/21 18:17 Labs: Lab Results 05/31/21 05/31/21 05/31/21 Range/Units 18:17 18:17 18:17 WBC 7.6 (4.5-11.0) X10^3/uL RBC 4.69 (4.0-5.2) X10^6/uL Hgb 14.1 (12.0-16.0) g/dL Hct 40.9 (36-46) % MCV 87.4 (80-100) fL MCH 30.1 (26-34) PG MCHC 34.4 (30-36) % RDW 13.5 (11.6-14.8) % Plt Count 212 (150-400) X10^3/uL Neut % (Auto) 51.0 (50-75) % Lymph % (Auto) 33.5 (25-40) % [place] % (Auto) 14.0 (3-14) % Eos % (Auto) 1.0 L (2-4) % Baso % (Auto) 0.5 (0-2) % Neut # (Auto) 3900 (4385-6884) /uL Lymph # (Auto) 2500 (1161-3961) /uL [place] # (Auto) 1100 H (0-900) /uL Eos # (Auto) 100 (0-450) /uL Baso # (Auto) 0 (0-100) /uL D-Dimer 267 H (<230) ng/mL Sodium 133 L (137-145) mmol/L Potassium 3.6 (3.4-5.1) mmol/L Chloride 96 L (98-107) mmol/L Carbon Dioxide 27 (22-32) mmol/L BUN 25 H (7-17) mg/dL Creatinine 0.93 (0.52-1.04) mg/dL Estimated GFR 58.2 L (>60) mL/min BUN/Creatinine Ratio 26.9 H (6-22) Glucose 128 H (80-110) mg/dL Calcium 9.3 (8.4-10.2) mg/dL Magnesium (1.6-2.3) mg/dL Ferritin (11-264) ng/mL Total Bilirubin 0.5 (0.2-1.3) mg/dL AST 50 H (14-36) IU/L ALT 26 (<35) IU/L Alkaline Phosphatase 67 (38-126) U/L Total Creatine Kinase (30-135) U/L CK-MB (CK-2) (<2.37) ng/mL CK-MB (CK-2) Rel Index (1.5-5.0) % Troponin I (0.01-0.034) ng/mL C-Reactive Protein 2.9 H (<1.0) mg/dL NT-Pro-B Natriuret Pep (<450) pg/mL Total Protein 7.2 (6.3-8.2) g/dL Albumin 4.3 (3.5-5.0) g/dL Globulin 2.9 (1.7-4.1) g/dL Albumin/Globulin Ratio 1.5 (1.0-2.8) SARS-CoV-2 (PCR) (Negative) 05/31/21 05/31/21 Range/Units 18:17 18:21 WBC (4.5-11.0) X10^3/uL RBC (4.0-5.2) X10^6/uL Hgb (12.0-16.0) g/dL Hct (36-46) % MCV (80-100) fL MCH (26-34) PG MCHC (30-36) % RDW (11.6-14.8) % Plt Count (150-400) X10^3/uL Neut % (Auto) (50-75) % Lymph % (Auto) (25-40) % [place] % (Auto) (3-14) % Eos % (Auto) (2-4) % Baso % (Auto) (0-2) % Neut # (Auto) (9006-6037) /uL Lymph # (Auto) (0187-1126) /uL [place] # (Auto) (0-900) /uL Eos # (Auto) (0-450) /uL Baso # (Auto) (0-100) /uL D-Dimer (<230) ng/mL Sodium (137-145) mmol/L Potassium (3.4-5.1) mmol/L Chloride (98-107) mmol/L Carbon Dioxide (22-32) mmol/L BUN (7-17) mg/dL Creatinine (0.52-1.04) mg/dL Estimated GFR (>60) mL/min BUN/Creatinine Ratio (6-22) Glucose (80-110) mg/dL Calcium (8.4-10.2) mg/dL Magnesium 2.1 (1.6-2.3) mg/dL Ferritin 431 H (11-264) ng/mL Total Bilirubin (0.2-1.3) mg/dL AST (14-36) IU/L ALT (<35) IU/L Alkaline Phosphatase (38-126) U/L Total Creatine Kinase 108 (30-135) U/L CK-MB (CK-2) 1.99 (<2.37) ng/mL CK-MB (CK-2) Rel Index 1.8 (1.5-5.0) % Troponin I < 0.012 (0.01-0.034) ng/mL C-Reactive Protein (<1.0) mg/dL NT-Pro-B Natriuret Pep 55 (<450) pg/mL Total Protein (6.3-8.2) g/dL Albumin (3.5-5.0) g/dL Globulin (1.7-4.1) g/dL Albumin/Globulin Ratio (1.0-2.8) SARS-CoV-2 (PCR) Positive H (Negative) Urine Dip Bedside Urine Glucose Negative Bedside Urine Bilirubin - Negative Bedside Urine Ketone +/- 5 Urine Specific [place] 1.020 Bedside Urine Occult Blood - Negative Bedside Urine pH 6.0 Bedside Urine Protein - Negative Bedside Urine Urobilinogen - Negative Bedside Urine Nitrite - Negative Bedside Urine Leukocytes - Negative Esterase MDM Narrative Medical decision making narrative: Patient has a very reassuring history, physical exam, labs and response to therapies. She had a syncopal episode today associated with change in position and improvement of symptoms when lying flat. She has had COVID for the week and is admittedly had poor appetite and has not been eating or drinking as much as normal. She was given 2 L of fluid and felt significant improvement. She has been ambulatory from her cart to the restroom and is no longer dizzy or lightheaded. Vital signs are reassuring. Extensive discussion with the patient regarding diagnostic considerations, return precautions and her questions have been answered to her apparent satisfaction. A really me a considered but thought unlikely given reassuring cardiac monitoring, additionally her symptoms were exacerbated upon standing, she did have prodromal symptoms such as lightheadedness leading into it which is more consistent with orthostatic issues. Electrode abnormality and anemia also considered but thought unlikely given reassuring lab findings. Pulmonary embolism considered but thought unlikely given negative D-dimer when corrected for age. Discharge Plan Departure Patient Disposition: Home Clinical Impression: Dehydration, Syncope due to orthostatic hypotension Instructions: DI for Syncope in Adults (Fainting) Activity Restrictions/Additional Instructions: *You have been diagnosed with [fainting episode most likely due to dehydration. As we discussed your response to therapies, history, physical exam, labs and imaging are very reassuring. *What to do: *Please continue to take your regular medications as directed. [ ] New medication prescriptions sent to your pharmacy: [ ] [ ] New medication written as a paper prescription [ x] No new medications given *Please follow up with your primary care provider in 2-3 days, call for an appointment. Let them know you were seen in the Emergency Department and that we ask that you be seen in follow up. We will electronically transmit a record of today's note if your PCP is in our system *If you do not have a primary care provider please contact the [facility] Resource line at [phone]. They will ask some questions about your medical history and help get you set up with a doctor in the community. *Return to Emergency Department if you should have any new, worsening or concerning symptoms, such as [fever greater than 101 F, shaking chills, worsening pain, persistent vomiting or other bothersome symptoms] Prescriptions: No Action albuterol sulfate [Ventolin HFA] 90 MCG/PUFF HFA aerosol inhaler 2 puff INH Q4HP PRN (Reason: Shortness Of Breath) Qty: 0 0RF potassium chloride 10 mEq Capsule, Extended Release 10 meq PO DAILY 0RF aspirin [Aspirin Low Dose] 81 mg Tablet,Delayed Release (Dr/Ec) 81 mg PO DAILY 0RF Zyrtec 10 mg Capsule 10 mg PO DAILY 0RF metoprolol succinate 50 mg tablet extended release 24 hr 50 mg PO QPM 0RF hydrochlorothiazide 25 mg tablet 12.5 mg PO DAILY 0RF losartan 100 mg tablet 100 mg PO BEDTIME 0RF Label Comments: TAKE ONE TABLET BY MOUTH DAILY AT BEDTIME FOR HIGH BLOOD PRESSURE (DME) NovoTwist 32 gauge x 1/5 needle MISCELLANEOUS 0RF metoprolol succinate 100 mg tablet extended release 24 hr 100 mg PO QAM 0RF Label Comments: TAKE 1 TABLET BY MOUTH ONCE IN THE MORNING Ozempic 0.25 mg or 0.5 mg(2 mg/1.5 mL) pen injector 0.25 mg SUBCUT WEEKLY 0RF Referrals: Sabina Hodges PA-C [Primary Care Provider] -
[2021-05-31 18:34] LABS: Add Manual Diff / Slide Review NO; Basophils Absolute Auto 0 /uL (0-100); Basophils Percent Auto 0.5 % (0-2); Eosinophils Absolute Auto 100 /uL (0-450); Hematocrit 40.9 % (36-46); Hemoglobin 14.1 g/dL (12.0-16.0); Lymphocytes Absolute Auto 2500 /uL (1100-4500); Lymphocytes Percent Auto 33.5 % (25-40); Mean Corpuscular HGB Conc 34.4 % (30-36); Mean Corpuscular Hemoglobin 30.1 PG (26-34); Mean Corpuscular Volume 87.4 fL (80-100); Monocytes Absolute Auto 1100 /uL (0-900); Neutrophils Absolute Auto 3900 /uL (1500-7000); Platelet Count 212 X10^3/uL (150-400); Red Blood Cell Count 4.69 X10^6/uL (4.0-5.2); Red Cell Distribution Width 13.5 % (11.6-14.8); White Blood Cell Count 7.6 X10^3/uL (4.5-11.0)
[2021-05-31 18:43] LABS: Creatine Kinase 108 U/L (30-135); Magnesium 2.1 mg/dL (1.6-2.3)
[2021-05-31 18:45] LABS: D Dimer 267 ng/mL (<230)
[2021-05-31 18:46] LABS: Alanine Aminotransferase 26 IU/L (<35); Albumin 4.3 g/dL (3.5-5.0); Albumin Globulin Ratio 1.5 (1.0-2.8); Alkaline Phosphatase 67 U/L (38-126); Aspartate Aminotransferase 50 IU/L (14-36); BUN Creatinine Ratio 26.9 (6-22); Bilirubin Total 0.5 mg/dL (0.2-1.3); Blood Urea Nitrogen 25 mg/dL (7-17); C-Reactive Protein Quant 2.9 mg/dL (<1.0); Calcium 9.3 mg/dL (8.4-10.2); Carbon Dioxide 27 mmol/L (22-32); Chloride 96 mmol/L (98-107); Estimated Glomerular Filt Rate 58.2 mL/min (>60); Globulin 2.9 g/dL (1.7-4.1); Glucose 128 mg/dL (80-110); HEMOLYSIS 16 (0-50); Potassium 3.6 mmol/L (3.4-5.1); Sodium 133 mmol/L (137-145); Total Protein 7.2 g/dL (6.3-8.2)
[2021-05-31 18:57] LABS: NT-proBNP (BNP-Adult 18+) 55 pg/mL (<450); Troponin I < 0.012 ng/mL (0.01-0.034)
[2021-05-31 18:58] LABS: CKMB % Relative Index 1.8 % (1.5-5.0); Creatine Kinase MB 1.99 ng/mL (<2.37)
[2021-05-31 19:19] LABS: Ferritin 431 ng/mL (11-264)
[2021-05-31] MEDS: SODIUM CHLORIDE 0.9% 1,000 ML 1000 ML IV ×2 (19:20→21:03)
[2021-05-31 19:59] LABS: COVID19 - ADMIT (NP swab/PCR) POSITIVE (Negative)
[2021-05-31] MEDS: ONDANSETRON 4 MG ODT PREPACK 1 BOTTLE MISC (22:14)
== END 2021-05-31 22:30 | disposition home or self-care (01) ==
PROVIDERS: Emergency Provider Emergency Medicine; PCP Physician Assistant
DX: I95.1 Orthostatic hypotension (principal); E86.0 Dehydration; U07.1 COVID-19; M25.551 Pain in right hip
CPT/HCPCS: 36415; 71045; 73502; 80053; 81003; 82550; 82553; 82728; 83735; 83880; 84484; 85025; 85379; 86140; 87635; 93005; 93010; 96360; 96361; 99284; C9803

== ENCOUNTER 2021-06-04 12:04 | Emergency (ER) | payer BC, SELFPAY ==
[2021-06-04] VITALS (14 sets, daily range): BP systolic 141–206; BP diastolic 63–93; PULSE 62–70; RESP 14–36; TEMP 36.7; O2SAT 96–99; BMI 29.6
--- NOTE | 2021-06-04 12:27 | DI.RAD.S_ITS ---
PROCEDURE: XR CHEST 2V INDICATIONS: shortness of breath TECHNIQUE: 2 views of the chest were acquired. COMPARISON: [facility], , XR CHEST 1V, 05/31/2021, 18:26. FINDINGS: Surgical changes and devices: None. Lungs and pleura: Mildly coarsened interstitial markings. No consolidation, pleural effusions or pneumothorax. Mediastinum: Mediastinal contours are normal. Heart size is normal. Bones and chest wall: No suspicious bony abnormalities. Soft tissues appear unremarkable. IMPRESSION: No acute cardiopulmonary abnormality. Dictated by: Refugio Sams M.D. on 06/04/2021 at 14:08 Approved by: Refugio Sams M.D. on 06/04/2021 at 14:09
--- NOTE | 2021-06-04 14:26 | ED.URI ---
HPI - URI/Sore Throat <Kajal Lema, [facility] - Last Filed: 06/04/21 16:24> General Chief Complaint: Upper Respiratory Symptoms Stated Complaint: covid + vomiting/body aches Time Seen by Provider: 06/04/21 14:05 Source: patient Mode of arrival: Family Vehicle History of Present Illness HPI Narrative: 80-year-old female who tested COVID positive 4 days ago presents to the emergency department with ongoing fatigue, dehydration, nausea and vomiting yesterday and today with moderate amount of phlegm, poor appetite, an intermittently productive cough. Patient reports that her nausea was triggered by coughing up phlegm. She has been taking Mucinex DM morning and night and Tylenol for her symptoms, she has a history of diabetes and hypertension and she is currently taking hydrochlorothiazide, metoprolol, and ozempic. Patient denies any chest pain or shortness of breath, she denies any wheezing, fever. She denies a history of COPD, emphysema, smoking, or prior lung disease I use but she does endorse occasional reactive airway and history of pneumonia. She denies any abdominal pain other than her vomiting she denies any diarrhea blood in her stool or her urine, she denies dysuria. Related Data Home Medications Medication Instructions Recorded Confirmed albuterol sulfate 90 mcg/actuation 2 puff INH Q4HP PRN #0 08/12/17 04/25/21 aerosol inhaler (Ventolin HFA) hydrochlorothiazide 25 mg tablet 12.5 mg PO DAILY 06/30/19 04/25/21 losartan 100 mg tablet 100 mg PO BEDTIME 06/30/19 04/25/21 metoprolol succinate 100 mg 100 mg PO QAM 06/30/19 04/25/21 tablet,extended release 24 hr metoprolol succinate 50 mg 50 mg PO QPM 06/30/19 04/25/21 tablet,extended release 24 hr pen needle, diabetic 32 gauge x 06/30/19 06/30/1905/24 (NovoTwist) aspirin 81 mg tablet,delayed 81 mg PO DAILY 03/08/20 04/25/21 release (Aspirin Low Dose) cetirizine 10 mg capsule (Zyrtec) 10 mg PO DAILY 03/08/20 04/25/21 potassium chloride 10 mEq 10 meq PO DAILY 03/08/20 04/25/21 capsule,extended release semaglutide (Ozempic) 0.25 mg SUBCUT WEEKLY 04/25/21 04/25/21 Previous Rx's Medication Instructions Recorded ondansetron 4 mg disintegrating 4 mg PO Q8H PRN #14 tab 06/04/21 tablet Allergies Allergy/AdvReac Type Severity Reaction Status Date / Time piroxicam [PIROXICAM] Allergy Unknown UNKNOWN Verified 06/04/21 12:19 PER PT cyclobenzaprine AdvReac Mild GI UPSET Verified 06/04/21 12:19 [CYCLOBENZAPRINE] Review of Systems <BRANDYN Rea - Last Filed: 06/04/21 16:24> Review of Systems Narrative: General: denies fever, chills, malaise, sweats, endorses fatigue Head/Neck: Endorses having a headache, without neck pain, dizziness Eyes: denies visual changes, eye pain Cardio: denies chest pain, palpitations, edema Respiratory: denies dyspnea, orthopnea, endorses an occasionally productive cough, phlegm, and congestion GI: denies abdominal pain, nausea, vomiting, or diarrhea : denies dysuria, hematuria, urinary retention, frequency or incontinence MSK: denies joint pain, muscle weakness Skin: denies rash, itching, skin lesions or other Neuro: denies numbness, tingling Patient History <BRANDYN Rea - Last Filed: 06/04/21 16:24> Medical History History of diabetes mellitus Hypertension Surgical History History of History of cholecystectomy Social History household members: spouse Smoking Status: Never smoker Smoking Status: Never smoker alcohol intake frequency: 0-2 drinks per day Substance Use Type: does not use Exam <BRANDYN Rea - Last Filed: 06/04/21 16:24> Narrative Exam Narrative: Independently reviewed vitals signs and nursing notes. General: Awake, alert, well-nourished and developed, nontoxic, no cardiorespiratory distress, appears fatigued Head/Neck: Atraumatic, neck full range of motion, trachea midline, no JVD or lymphadenopathy. Supple, nontender, no meningeal signs. Eyes: Pupils equal round and reactive, EOMI, conjunctiva normal, no scleral icterus or injections Nose: nares patent, no rhinorrhea, without purulent drainage Mouth/Throat: uvula midline, moist mucus membranes, posterior pharynx normal, no oral lesions, airway patent Cardio: Regular rate and rhythm, no peripheral edema, S1, murmur over S2, no additional sounds, no edema Respiratory: respirations unlabored without wheezing, stridor, or rales. No retractions. GI: Abdomen soft, nontender, nondistended, no hepato-spenomegaly MSK: Moves all extremities, neurovascularly intact, no flank tenderness Skin: Normal capillary refill, no rash Neuro: Normal speech and cognition, normal gait, A&O x3 Initial Vital Signs Initial Vital Signs: Vital Signs Temperature 98.1 F 06/04/21 12:19 Pulse Rate 68 06/04/21 12:19 Respiratory Rate 18 06/04/21 12:19 Blood Pressure 157/70 H 06/04/21 12:19 Pulse Oximetry 98 06/04/21 12:19 <Fatemeh Ceballos DO - Last Filed: 06/04/21 18:01> Initial Vital Signs Initial Vital Signs: Vital Signs Temperature 98.1 F 06/04/21 12:19 Pulse Rate 68 06/04/21 12:19 Respiratory Rate 18 06/04/21 12:19 Blood Pressure 157/70 H 06/04/21 12:19 Pulse Oximetry 98 06/04/21 12:19 Course <BRANDYN Rea - Last Filed: 06/04/21 16:24> Orders Ordered: ED Orders 06/04/21 12:27 XR chest 2V Stat Measure peak expiratory flow ONCE RT Consult Eval and Treat Now 06/04/21 15:07 CRP [C-Reactive Protein Quant] Stat Complete Blood Count AUTO DIFF Stat Comprehensive Metabolic Panel Stat Ferritin Stat Lactate (Lactic Acid) Stat 06/04/21 15:20 D Dimer Stat Discontinued Medications Famotidine (Famotidine 20 Mg Tablet) 20 mg PO NOW ONE Stop: 06/04/21 15:27 Last Admin: 06/04/21 15:37 Dose: 20 mg Documented by: DOROTHY Sodium Chloride (Normal Saline 0.9%) 1,000 mls @ 1,000 mls/hr IV BOLUS ONE Stop: 06/04/21 15:26 Last Infusion: 06/04/21 16:01 Dose: 0 mls/hr Documented by: Admin: 06/04/21 14:54 Dose: 1,000 mls/hr Documented by: MONIQUE Metoprolol Tartrate (Metoprolol Ir 25 Mg Tablet) 25 mg PO NOW ONE Stop: 06/04/21 16:44 Last Admin: 06/04/21 16:47 Dose: 25 mg Documented by: DOROTHY Ondansetron HCl (Ondansetron 4 Mg/2 Ml Inj) 4 mg IV NOW ONE Stop: 06/04/21 14:28 Last Admin: 06/04/21 14:54 Dose: 4 mg Documented by: MONIQUE Potassium Chloride (Potassium Chloride 20 Meq Tab) 20 meq PO NOW ONE Stop: 06/04/21 15:26 Last Admin: 06/04/21 15:37 Dose: 20 meq Documented by: DOROTHY Vital Signs Vital signs: Vital Signs - 8 hr 06/04/21 12:19 06/04/21 14:04 06/04/21 14:05 Temperature 98.1 F Pulse Rate 68 66 67 Respiratory Rate 18 24 23 Blood Pressure 157/70 H 206/93 H Pulse Oximetry 98 98 98 06/04/21 14:08 06/04/21 14:20 06/04/21 14:30 Temperature Pulse Rate 67 65 64 Respiratory Rate 18 36 H 35 H Blood Pressure 186/85 H 182/84 H Pulse Oximetry 99 97 99 06/04/21 14:34 06/04/21 15:00 06/04/21 15:30 Temperature Pulse Rate 63 62 69 Respiratory Rate 35 H 17 Blood Pressure 141/63 H Pulse Oximetry 98 97 96 06/04/21 16:00 06/04/21 16:12 06/04/21 16:30 Temperature Pulse Rate 70 68 67 Respiratory Rate 34 H 16 20 Blood Pressure 202/80 H Pulse Oximetry 98 98 98 06/04/21 16:31 06/04/21 16:55 Temperature Pulse Rate 68 68 Respiratory Rate 22 14 Blood Pressure 199/87 H 160/68 H Pulse Oximetry 98 98 <Fatemeh Ceballos, DO - Last Filed: 06/04/21 18:01> Orders Ordered: ED Orders 06/04/21 12:27 XR chest 2V Stat Measure peak expiratory flow ONCE RT Consult Eval and Treat Now 06/04/21 15:07 CRP [C-Reactive Protein Quant] Stat Complete Blood Count AUTO DIFF Stat Comprehensive Metabolic Panel Stat Ferritin Stat Lactate (Lactic Acid) Stat 06/04/21 15:20 D Dimer Stat Discontinued Medications Famotidine (Famotidine 20 Mg Tablet) 20 mg PO NOW ONE Stop: 06/04/21 15:27 Last Admin: 06/04/21 15:37 Dose: 20 mg Documented by: DOROTHY Sodium Chloride (Normal Saline 0.9%) 1,000 mls @ 1,000 mls/hr IV BOLUS ONE Stop: 06/04/21 15:26 Last Infusion: 06/04/21 16:01 Dose: 0 mls/hr Documented by: Admin: 06/04/21 14:54 Dose: 1,000 mls/hr Documented by: MONIQUE Metoprolol Tartrate (Metoprolol Ir 25 Mg Tablet) 25 mg PO NOW ONE Stop: 06/04/21 16:44 Last Admin: 06/04/21 16:47 Dose: 25 mg Documented by: DOROTHY Ondansetron HCl (Ondansetron 4 Mg/2 Ml Inj) 4 mg IV NOW ONE Stop: 06/04/21 14:28 Last Admin: 06/04/21 14:54 Dose: 4 mg Documented by: MONIQUE Potassium Chloride (Potassium Chloride 20 Meq Tab) 20 meq PO NOW ONE Stop: 06/04/21 15:26 Last Admin: 06/04/21 15:37 Dose: 20 meq Documented by: DOROTHY Vital Signs Vital signs: Vital Signs - 8 hr 06/04/21 12:19 06/04/21 14:04 06/04/21 14:05 Temperature 98.1 F Pulse Rate 68 66 67 Respiratory Rate 18 24 23 Blood Pressure 157/70 H 206/93 H Pulse Oximetry 98 98 98 06/04/21 14:08 06/04/21 14:20 06/04/21 14:30 Temperature Pulse Rate 67 65 64 Respiratory Rate 18 36 H 35 H Blood Pressure 186/85 H 182/84 H Pulse Oximetry 99 97 99 06/04/21 14:34 06/04/21 15:00 06/04/21 15:30 Temperature Pulse Rate 63 62 69 Respiratory Rate 35 H 17 Blood Pressure 141/63 H Pulse Oximetry 98 97 96 06/04/21 16:00 06/04/21 16:12 06/04/21 16:30 Temperature Pulse Rate 70 68 67 Respiratory Rate 34 H 16 20 Blood Pressure 202/80 H Pulse Oximetry 98 98 98 06/04/21 16:31 06/04/21 16:55 Temperature Pulse Rate 68 68 Respiratory Rate 22 14 Blood Pressure 199/87 H 160/68 H Pulse Oximetry 98 98 MDM - URI/Sore Throat <FRANCISCO ReaP - Last Filed: 06/04/21 16:24> Lab Data Result diagrams: 06/04/21 15:07 06/04/21 15:07 Labs: Lab Results 06/04/21 06/04/21 06/04/21 Range/Units 15:07 15:07 15:07 WBC 6.3 (4.5-11.0) X10^3/uL RBC 4.37 (4.0-5.2) X10^6/uL Hgb 13.0 (12.0-16.0) g/dL Hct 37.9 (36-46) % MCV 86.9 (80-100) fL MCH 29.9 (26-34) PG MCHC 34.4 (30-36) % RDW 13.2 (11.6-14.8) % Plt Count 192 (150-400) X10^3/uL Neut % (Auto) 70.3 (50-75) % Lymph % (Auto) 19.6 L (25-40) % [place] % (Auto) 9.1 (3-14) % Eos % (Auto) 0.6 L (2-4) % Baso % (Auto) 0.4 (0-2) % Neut # (Auto) 4500 (3319-5971) /uL Lymph # (Auto) 1200 (7309-1114) /uL [place] # (Auto) 600 (0-900) /uL Eos # (Auto) 0 (0-450) /uL Baso # (Auto) 0 (0-100) /uL D-Dimer (<230) ng/mL Sodium 127 L (137-145) mmol/L Potassium 3.1 L (3.4-5.1) mmol/L Chloride 89 L (98-107) mmol/L Carbon Dioxide 30 (22-32) mmol/L BUN 11 (7-17) mg/dL Creatinine 0.60 (0.52-1.04) mg/dL Estimated GFR > 60.0 (>60) mL/min BUN/Creatinine Ratio 18.3 (6-22) Glucose 125 H (80-110) mg/dL Lactate 1.3 (0.7-2.1) mmol/L Calcium 8.9 (8.4-10.2) mg/dL Ferritin (11-264) ng/mL Total Bilirubin 0.9 (0.2-1.3) mg/dL AST 27 (14-36) IU/L ALT 21 (<35) IU/L Alkaline Phosphatase 60 (38-126) U/L C-Reactive Protein (<1.0) mg/dL Total Protein 7.0 (6.3-8.2) g/dL Albumin 4.2 (3.5-5.0) g/dL Globulin 2.8 (1.7-4.1) g/dL Albumin/Globulin Ratio 1.5 (1.0-2.8) 06/04/21 06/04/21 Range/Units 15:07 15:20 WBC (4.5-11.0) X10^3/uL RBC (4.0-5.2) X10^6/uL Hgb (12.0-16.0) g/dL Hct (36-46) % MCV (80-100) fL MCH (26-34) PG MCHC (30-36) % RDW (11.6-14.8) % Plt Count (150-400) X10^3/uL Neut % (Auto) (50-75) % Lymph % (Auto) (25-40) % [place] % (Auto) (3-14) % Eos % (Auto) (2-4) % Baso % (Auto) (0-2) % Neut # (Auto) (8103-7367) /uL Lymph # (Auto) (6907-0076) /uL [place] # (Auto) (0-900) /uL Eos # (Auto) (0-450) /uL Baso # (Auto) (0-100) /uL D-Dimer < 200 (<230) ng/mL Sodium (137-145) mmol/L Potassium (3.4-5.1) mmol/L Chloride (98-107) mmol/L Carbon Dioxide (22-32) mmol/L BUN (7-17) mg/dL Creatinine (0.52-1.04) mg/dL Estimated GFR (>60) mL/min BUN/Creatinine Ratio (6-22) Glucose (80-110) mg/dL Lactate (0.7-2.1) mmol/L Calcium (8.4-10.2) mg/dL Ferritin 525 H (11-264) ng/mL Total Bilirubin (0.2-1.3) mg/dL AST (14-36) IU/L ALT (<35) IU/L Alkaline Phosphatase (38-126) U/L C-Reactive Protein < 0.5 (<1.0) mg/dL Total Protein (6.3-8.2) g/dL Albumin (3.5-5.0) g/dL Globulin (1.7-4.1) g/dL Albumin/Globulin Ratio (1.0-2.8) Imaging Data Chest x-ray: Radiologist's Impression: PROCEDURE:? XR CHEST 2V ? INDICATIONS:? shortness of breath ? TECHNIQUE:? 2 views of the chest were acquired.? ? COMPARISON:? [facility], , XR CHEST 1V, 05/31/2021, 18:26. ? FINDINGS:? ? Surgical changes and devices:? None.? ? Lungs and pleura:? Mildly coarsened interstitial markings.? No consolidation, pleural effusions or pneumothorax.? ? Mediastinum:? Mediastinal contours are normal.? Heart size is normal.? ? Bones and chest wall:? No suspicious bony abnormalities.? Soft tissues appear unremarkable.? ? IMPRESSION:? No acute cardiopulmonary abnormality. ? ? Dictated by: Refugio Sams M.D. on 06/04/2021 at 14:08 ? ? Approved by: Refugio Sams M.D. on 06/04/2021 at 14:09 ? MDM Narrative Medical decision making narrative: 80-year-old female presents the emergency department for ongoing fatigue, nausea and vomiting after testing positive for COVID 05/31/2021. Patient endorses post-tussive emesis x2 yesterday and today with poor appetite and little interest in food. She is concerned she is dehydrated. She states that otherwise she has been taking her medications as scheduled, has been taking guaifenesin b.i.d. and Tylenol for her symptoms with mild relief. She has an ongoing cough, fatigue, poor appetite, and 2 episodes of vomiting. She has been afebrile, without worsening shortness of breath, chest pain, syncope, vision changes, or dizziness. Chest x-ray today shows mildly coarsened interstitial markings without consolidation, pleural effusions or pneumothorax. There is no acute cardiopulmonary abnormality. Lab work shows mild electrolyte depletion, sodium of 127 down from 133 on 05/31/2021. Potassium 3.1 down from 3.6, chloride 89 down from 96. Patient's creatinine is 0.6 down from 0.9, lactate 1.3, no elevation in liver enzymes. She was given 1 L of normal saline, methocarbamol, 20 mEq of potassium, some salty crackers, water which she tolerated and kept down without difficulty or nausea vomiting. Her D-dimer is decreased below 200, on 04/30/2022 it was 267 ng/mL. Considered [place], PE, pneumothorax, pneumonia, aortic dissection, and pleurisy. Patient reports no radiation, no diaphoresis, no provocation with exertion, no orthopnea, and no vomiting. Patient was able to ambulate to the bathroom to void without any dizziness, orthostatic changes, or unsteadiness. Patient is appropriate and amenable to discharge home. Vital signs are stable on repeat examination is unremarkable. Patient has been informed of results. Patient has been given strict return to ER precautions for any new or worsening symptoms. Patient understands to follow up closely with outpatient providers as instructed. Patient understands plan and agrees to discharge home. All questions and concerns answered at this time. <Fatemeh Ceballos, DO - Last Filed: 06/04/21 18:01> Lab Data Labs: Lab Results 06/04/21 06/04/21 06/04/21 Range/Units 15:07 15:07 15:07 WBC 6.3 (4.5-11.0) X10^3/uL RBC 4.37 (4.0-5.2) X10^6/uL Hgb 13.0 (12.0-16.0) g/dL Hct 37.9 (36-46) % MCV 86.9 (80-100) fL MCH 29.9 (26-34) PG MCHC 34.4 (30-36) % RDW 13.2 (11.6-14.8) % Plt Count 192 (150-400) X10^3/uL Neut % (Auto) 70.3 (50-75) % Lymph % (Auto) 19.6 L (25-40) % [place] % (Auto) 9.1 (3-14) % Eos % (Auto) 0.6 L (2-4) % Baso % (Auto) 0.4 (0-2) % Neut # (Auto) 4500 (2923-9294) /uL Lymph # (Auto) 1200 (1912-0928) /uL [place] # (Auto) 600 (0-900) /uL Eos # (Auto) 0 (0-450) /uL Baso # (Auto) 0 (0-100) /uL D-Dimer (<230) ng/mL Sodium 127 L (137-145) mmol/L Potassium 3.1 L (3.4-5.1) mmol/L Chloride 89 L (98-107) mmol/L Carbon Dioxide 30 (22-32) mmol/L BUN 11 (7-17) mg/dL Creatinine 0.60 (0.52-1.04) mg/dL Estimated GFR > 60.0 (>60) mL/min BUN/Creatinine Ratio 18.3 (6-22) Glucose 125 H (80-110) mg/dL Lactate 1.3 (0.7-2.1) mmol/L Calcium 8.9 (8.4-10.2) mg/dL Ferritin (11-264) ng/mL Total Bilirubin 0.9 (0.2-1.3) mg/dL AST 27 (14-36) IU/L ALT 21 (<35) IU/L Alkaline Phosphatase 60 (38-126) U/L C-Reactive Protein (<1.0) mg/dL Total Protein 7.0 (6.3-8.2) g/dL Albumin 4.2 (3.5-5.0) g/dL Globulin 2.8 (1.7-4.1) g/dL Albumin/Globulin Ratio 1.5 (1.0-2.8) 06/04/21 06/04/21 Range/Units 15:07 15:20 WBC (4.5-11.0) X10^3/uL RBC (4.0-5.2) X10^6/uL Hgb (12.0-16.0) g/dL Hct (36-46) % MCV (80-100) fL MCH (26-34) PG MCHC (30-36) % RDW (11.6-14.8) % Plt Count (150-400) X10^3/uL Neut % (Auto) (50-75) % Lymph % (Auto) (25-40) % [place] % (Auto) (3-14) % Eos % (Auto) (2-4) % Baso % (Auto) (0-2) % Neut # (Auto) (2112-0149) /uL Lymph # (Auto) (3496-0511) /uL [place] # (Auto) (0-900) /uL Eos # (Auto) (0-450) /uL Baso # (Auto) (0-100) /uL D-Dimer < 200 (<230) ng/mL Sodium (137-145) mmol/L Potassium (3.4-5.1) mmol/L Chloride (98-107) mmol/L Carbon Dioxide (22-32) mmol/L BUN (7-17) mg/dL Creatinine (0.52-1.04) mg/dL Estimated GFR (>60) mL/min BUN/Creatinine Ratio (6-22) Glucose (80-110) mg/dL Lactate (0.7-2.1) mmol/L Calcium (8.4-10.2) mg/dL Ferritin 525 H (11-264) ng/mL Total Bilirubin (0.2-1.3) mg/dL AST (14-36) IU/L ALT (<35) IU/L Alkaline Phosphatase (38-126) U/L C-Reactive Protein < 0.5 (<1.0) mg/dL Total Protein (6.3-8.2) g/dL Albumin (3.5-5.0) g/dL Globulin (1.7-4.1) g/dL Albumin/Globulin Ratio (1.0-2.8) Discharge Plan Departure Patient Disposition: Home Clinical Impression: COVID-19, Acute hyponatremia, Acute hypokalemia, Nausea & vomiting Upper respiratory infection Qualifiers: URI type: unspecified viral URI Qualified Code(s): J06.9 - Acute upper respiratory infection, unspecified Activity Restrictions/Additional Instructions: *You have been diagnosed with fatigue, nausea and vomiting, hypokalemia (low potassium), hyponatremia (low sodium), and dehydration likely due to COVID-19 illness. You did not have any signs of pneumonia on your chest x-ray, your lab work does not reflect any worsening infection. I presume your electrolytes specifically your potassium and your sodium are low because of your decreased oral intake over the last few days and the nausea and vomiting. I have sent some Zofran for nausea to your pharmacy at [facility]. Please try and get some simple nutrition in which include some sodium, if your drinking fluids please drink fluids with electrolytes since you have a deficit. Please start taking a multivitamin in the morning if you do not already. You may try the liquid IV if that is helpful. Please return if you have any worsening shortness of breath, weakness, nausea vomiting which is not controllable with Zofran, or any other concerning symptoms. We are here for you, I hope that you start to improve without the need to return. Please try and stay hydrated as best as you can. Feel better soon. *What to do: *Please continue to take your regular medications as directed. [x ] New medication prescriptions sent to your pharmacy: [[facility]] [ ] New medication written as a paper prescription [ ] No new medications given *Please follow up with your primary care provider in 2-3 days, call for an appointment. Let them know you were seen in the Emergency Department and that we ask that you be seen in follow up. We will electronically transmit a record of today's note if your PCP is in our system *If you do not have a primary care provider please contact the [facility] Resource line at [phone]. They will ask some questions about your medical history and help get you set up with a doctor in the community. *Return to Emergency Department if you should have any new, worsening or concerning symptoms, such as [fever greater than 101F, chills, worsening pain, persistent vomiting or other bothersome symptoms] Prescriptions: New ondansetron 4 mg tablet,disintegrating 4 mg PO Q8H PRN (Reason: nausea and vomiting) Qty: 14 0RF No Action albuterol sulfate [Ventolin HFA] 90 MCG/PUFF HFA aerosol inhaler 2 puff INH Q4HP PRN (Reason: Shortness Of Breath) Qty: 0 0RF potassium chloride 10 mEq Capsule, Extended Release 10 meq PO DAILY 0RF aspirin [Aspirin Low Dose] 81 mg Tablet,Delayed Release (Dr/Ec) 81 mg PO DAILY 0RF Zyrtec 10 mg Capsule 10 mg PO DAILY 0RF metoprolol succinate 50 mg tablet extended release 24 hr 50 mg PO QPM 0RF hydrochlorothiazide 25 mg tablet 12.5 mg PO DAILY 0RF losartan 100 mg tablet 100 mg PO BEDTIME 0RF Label Comments: TAKE ONE TABLET BY MOUTH DAILY AT BEDTIME FOR HIGH BLOOD PRESSURE (DME) NovoTwist 32 gauge x 1/5 needle MISCELLANEOUS 0RF metoprolol succinate 100 mg tablet extended release 24 hr 100 mg PO QAM 0RF Label Comments: TAKE 1 TABLET BY MOUTH ONCE IN THE MORNING Ozempic 0.25 mg or 0.5 mg(2 mg/1.5 mL) pen injector 0.25 mg SUBCUT WEEKLY 0RF Referrals: Sabina Hodges PA-C [Primary Care Provider] - <Fatemeh Ceballos DO - Last Filed: 06/04/21 18:01> Cosign ED Attending Medinaature Attestation: I was immediately available in the department for consultation. Documentation has been reviewed.
[2021-06-04] MEDS: SODIUM CHLORIDE 0.9% 1,000 ML 1000 ML IV (14:54)
[2021-06-04] MEDS: ONDANSETRON 4 MG/2 ML INJ IV (14:54)
[2021-06-04 15:13] LABS: Add Manual Diff / Slide Review NO; Basophils Absolute Auto 0 /uL (0-100); Basophils Percent Auto 0.4 % (0-2); Eosinophils Absolute Auto 0 /uL (0-450); Eosinophils Percent Auto 0.6 % (2-4); Hematocrit 37.9 % (36-46); Lymphocytes Absolute Auto 1200 /uL (1100-4500); Lymphocytes Percent Auto 19.6 % (25-40); Mean Corpuscular HGB Conc 34.4 % (30-36); Mean Corpuscular Hemoglobin 29.9 PG (26-34); Mean Corpuscular Volume 86.9 fL (80-100); Monocytes Absolute Auto 600 /uL (0-900); Monocytes Percent Auto 9.1 % (3-14); Neutrophils Absolute Auto 4500 /uL (1500-7000); Neutrophils Percent Auto 70.3 % (50-75); Platelet Count 192 X10^3/uL (150-400); Red Blood Cell Count 4.37 X10^6/uL (4.0-5.2); Red Cell Distribution Width 13.2 % (11.6-14.8); White Blood Cell Count 6.3 X10^3/uL (4.5-11.0)
[2021-06-04 15:21] LABS: Alanine Aminotransferase 21 IU/L (<35); Albumin 4.2 g/dL (3.5-5.0); Albumin Globulin Ratio 1.5 (1.0-2.8); Alkaline Phosphatase 60 U/L (38-126); Aspartate Aminotransferase 27 IU/L (14-36); BUN Creatinine Ratio 18.3 (6-22); Bilirubin Total 0.9 mg/dL (0.2-1.3); Blood Urea Nitrogen 11 mg/dL (7-17); Calcium 8.9 mg/dL (8.4-10.2); Carbon Dioxide 30 mmol/L (22-32); Chloride 89 mmol/L (98-107); Estimated Glomerular Filt Rate > 60.0 mL/min (>60); Globulin 2.8 g/dL (1.7-4.1); Glucose 125 mg/dL (80-110); HEMOLYSIS < 15 (0-50); Potassium 3.1 mmol/L (3.4-5.1); Sodium 127 mmol/L (137-145)
[2021-06-04 15:22] LABS: Lactate (Lactic Acid) 1.3 mmol/L (0.7-2.1)
[2021-06-04 15:37] LABS: D Dimer < 200 ng/mL (<230)
[2021-06-04] MEDS: FAMOTIDINE 20 MG TABLET PO (15:37)
[2021-06-04] MEDS: POTASSIUM CHLORIDE 20 MEQ TAB PO (15:37)
[2021-06-04 16:19] LABS: C-Reactive Protein Quant < 0.5 mg/dL (<1.0)
[2021-06-04] MEDS: METOPROLOL IR 25 MG TABLET PO (16:47)
[2021-06-04 16:51] LABS: Ferritin 525 ng/mL (11-264)
== END 2021-06-04 17:01 | disposition home or self-care (01) ==
PROVIDERS: Emergency Medicine; Emergency Provider Nurse Practitioner Critical Care Medicine; PCP Physician Assistant
DX: U07.1 COVID-19 (principal); E87.1 Hypo-osmolality and hyponatremia; E87.6 Hypokalemia; J06.9 Acute upper respiratory infection, unspecified
CPT/HCPCS: 36415; 71046; 80053; 82728; 83605; 85025; 85379; 86140; 99284; A9270; J2405

== ENCOUNTER → 2024-04-28 09:28 | Outpatient (CLI) | payer BC, SELFPAY | PROVIDERS: PCP Student in an Organized Health Care Education/Training Program; Referring Provider Student in an Organized Health Care Education/Training Program; Visit Provider Surgery | DX: E11.622 Type 2 diabetes mellitus with other skin ulcer (principal); L97.812 Non-pressure chronic ulcer of other part of right lower leg with fat layer exposed; L53.9 Erythematous condition, unspecified; R60.0 Localized edema; R23.4 Changes in skin texture | CPT/HCPCS: 11042; 87070; 87205; 99203; 99213 ==

== ENCOUNTER → 2024-05-05 10:09 | Outpatient (CLI) | payer BC, SELFPAY | LOC: WC 10:09 | PROVIDERS: PCP Student in an Organized Health Care Education/Training Program; Referring Provider Student in an Organized Health Care Education/Training Program; Visit Provider Surgery | DX: E11.622 Type 2 diabetes mellitus with other skin ulcer (principal); L97.812 Non-pressure chronic ulcer of other part of right lower leg with fat layer exposed; L98.8 Other specified disorders of the skin and subcutaneous tissue; S81.801A Unspecified open wound, right lower leg, initial encounter; R23.3 Spontaneous ecchymoses; R60.0 Localized edema; Z79.4 Long term (current) use of insulin | CPT/HCPCS: 11042; 99213 ==

== ENCOUNTER → 2024-05-18 11:04 | Outpatient (CLI) | payer BC, SELFPAY | LOC: WC 11:04 | PROVIDERS: PCP Student in an Organized Health Care Education/Training Program; Referring Provider Student in an Organized Health Care Education/Training Program; Visit Provider Surgery | DX: S81.801D Unspecified open wound, right lower leg, subsequent encounter (principal); Z09 Encounter for follow-up examination after completed treatment for conditions other than malignant neoplasm; Z86.31 Personal history of diabetic foot ulcer | CPT/HCPCS: 99212; 99213 ==

== ENCOUNTER 2024-12-12 09:11 | Emergency (ER) | payer BC, SELFPAY ==
[2024-12-12 09:38] VITALS: BP 122/57; PULSE 75; RESP 17; TEMP 36.3; O2SAT 97; BMI 31.4
--- NOTE | 2024-12-12 09:56 | ED_ITS ---
HPI - General Adult General Chief complaint: Shortness of Breath/Dyspnea Stated complaint: SOB, swelling in both lower legs , elevated BP Time Seen by Provider: 12/12/24 09:16 Source: patient Mode of arrival: Family Vehicle History of Present Illness HPI narrative: 84-year-old woman with a history of asthma, hypertension, lower extremity edema, aortic valvular stenosis, she has excess aldosterone with an adrenal nodule is seen in the [facility] an Interventional Radiology consult is upcoming. She is complaining of worsening lower extremity edema for the past month now is having some weeping on the right side. She is not complaining fevers or chills. She does complain of tenderness in the lower extremities as of the increased edema. She is not currently on furosemide. She is concerned that the aldosterone fluctuations or what is exacerbating the lower extremity edema which may in fact be true. On review of systems she notes she has a mild scratchy throat believe she is coming down with an upper respiratory infection she is not currently wheezing she does have inhalers at home not particularly concerned about this Related Data Home Medications ?Medication ?Instructions ?Recorded ?Confirmed albuterol sulfate 90 mcg/actuation 2 puff INH Q4HP PRN Shortness Of 08/12/17 04/25/21 aerosol inhaler (Ventolin HFA) Breath ##0 hydrochlorothiazide 25 mg tablet 12.5 mg PO DAILY 06/2004/25/21 losartan 100 mg tablet 100 mg PO BEDTIME 06/30/19 1 06/26/20 metoprolol succinate 100 mg 100 mg PO QAM 06/30/1912/07 tablet,extended release 24 hr metoprolol succinate 50 mg 50 mg PO QPM 06/30/1904/25 tablet,extended release 24 hr pen needle, diabetic 32 gauge x 06/30/19 06/30/1905/24 (NovoTwist) aspirin 81 mg tablet,delayed 81 mg PO DAILY 03/08/20 1 06/26/20 release (Mark Low Dose Aspirin) cetirizine 10 mg capsule (Zyrtec) 10 mg PO DAILY 03/0804/25/21 potassium chloride 10 mEq 10 meq PO DAILY 03/08/2012/07 capsule,extended release semaglutide 0.25 mg or 0.5 mg (2 0.25 mg SUBCUT WEEKLY 04/25/21 04/25/21 mg/1.5 mL) subcutaneous pen injector (Ozempic) Previous Rx's ?Medication ?Instructions ?Recorded ondansetron 4 mg disintegrating 4 mg PO Q8H PRN nausea and 06/04/21 tablet vomiting #14 tabs furosemide 20 mg tablet 20 mg PO DAILY #30 tabs 11/18 11/11 potassium chloride 8 mEq 8 meq PO DAILY #30 caps 11/18 11/11 capsule,extended release Allergies Allergy/AdvReac Type Severity Reaction Status Date / Time piroxicam (PIROXICAM) Allergy Unknown UNKNOWN Verified 12/12/24 09:38 PER PT cyclobenzaprine AdvReac Mild GI UPSET Verified 12/12/24 09:38 (CYCLOBENZAPRINE) Review of Systems Review of Systems Narrative: Pertinent positive and negative findings as per HPI Patient History Medical History (Updated 12/12/24 @ 12:18 by Fannie Love MD) Bilateral edema of lower extremity Adrenal mass Severe aortic stenosis History of diabetes mellitus Hypertension Surgical History History of History of cholecystectomy Social History household members: spouse Smoking Status: Never smoker Smoking Status: Never smoker alcohol intake frequency: 0-2 drinks per day Exam Initial Vital Signs Initial Vital Signs: Vital Signs Temperature 97.3 F L 12/12/24 09:38 Pulse Rate 75 12/12/24 09:38 Respiratory Rate 17 12/12/24 09:38 Blood Pressure 122/57 L 12/12/24 09:38 Pulse Oximetry 97 12/12/24 09:38 Oxygen Delivery Method Room Air 12/12/24 09:38 General: Healthy appearing, in no acute distress. Able to give a complete and coherent history. Well-nourished well-developed HEENT: Moist mucous membranes, normal sclera with reactive pupils, Respiratory: Lungs are clear to auscultation, no wheezing no rales no rhonchi. Full and symmetrical air movement Cardiac: Regular rate and rhythm, 3/6 systolic murmur Abdomen: Soft, nontender, no rebound or guarding, no flank pain Skin: Warm and dry, no rashes Neurologic: Grossly neurologically intact with no obvious asymmetries or abnormalities Extremities: She does not have significant chronic venous stasis changes. She has 2+ tense lower extremity edema with some weeping but no vesicles on the right side. No evidence of venous stasis ulcers, skin breakdown or infection Psych: Cooperative, appropriate insight and affect Course Orders Ordered: ED Orders 12/12/24 10:07 BMP [Basic Metabolic Panel] Stat BNP [NT-proBNP (BNP-Adult 18+)] Stat CBC Auto Diff [Complete Blood Count AUTO DIFF] Stat Vital Signs Vital signs: Vital Signs - 8 hr 12/12/24 09:38 12/12/24 11:14 12/12/24 11:14 Temperature 97.3 F L Pulse Rate 75 71 Respiratory Rate 17 Blood Pressure 122/57 L 125/60 Pulse Oximetry 97 98 Oxygen Delivery Method Room Air Medical Decision Making Lab Data 12/12/24 10:07 12/12/24 10:07 Labs: Lab Results 12/12/24 Range/Units 10:07 WBC 7.1 (4.5-11.0) X10^3/uL RBC 3.89 L (4.0-5.2) X10^6/uL Hgb 11.9 L (12.0-16.0) g/dL Hct 34.7 L (36-46) % MCV 89.1 (80-100) fL MCH 30.7 (26-34) PG MCHC 34.4 (30-36) % RDW 13.2 (11.6-14.8) % Plt Count 197 (150-400) X10^3/uL Neut % (Auto) 76.1 H (50-75) % Lymph % (Auto) 13.4 L (25-40) % [facility] % (Auto) 7.0 (3-14) % Eos % (Auto) 2.5 (2-4) % Baso % (Auto) 1.0 (0-2) % Neut # (Auto) 5400 (5369-4900) /uL Lymph # (Auto) 1000 L (7768-4973) /uL [facility] # (Auto) 500 (0-900) /uL Eos # (Auto) 200 (0-450) /uL Baso # (Auto) 100 (0-100) /uL Sodium 134 L (137-145) mmol/L Potassium 4.1 (3.4-5.1) mmol/L Chloride 100 (98-107) mmol/L Carbon Dioxide 25 (22-32) mmol/L BUN 16 (7-17) mg/dL Creatinine 0.71 (0.52-1.04) mg/dL Estimated GFR > 60 (>60) mL/min BUN/Creatinine Ratio 22.5 H (6-22) Glucose 122 H (70-99) mg/dL Calcium 9.1 (8.4-10.2) mg/dL NT-Pro-B Natriuret Pep 428 (<450) pg/mL MDM Narrative Medical decision making narrative: CC: Lower extremity edema, right is beginning to weep Complicating co-morbidities: Asthma, hypertension, aortic stenosis, excess aldosterone with IR intervention for adrenal nodule scheduled in the near future Data collected from: patient Medical records reviewed: Note from her structural test engineer on November 17 regarding her valvular aortic stenosis he believes this is contributing to the shortness of breath and chest discomfort and a transthoracic echocardiogram has been ordered for further evaluation. Differential considered: Chronic lower extremity edema, venous stasis, congestive heart failure, renal failure, infection seems less likely, DVTs possibility, less likely Exam documented above, pertinent findings include: Exam itself is fairly benign. She has 3/6 systolic ejection murmur, bilateral minimally pitting lower extremity edema without venous stasis changes but there is some serosanguineous weeping from the back of her right calf with no bulla, redness or underlying fluctuance. Voice is slightly hoarse lungs have no wheezing Lab Test results independently reviewed as above. Pertinent findings: CBC is unremarkable, mild anemia at 11.9 and 34.7 Chemistries are reassuring with normal creatinine BNP is not significantly elevated Treatments: Oral Lasix Discussion: 84-year-old woman with chronic lower extremity edema fairly new finding, not on any diuresis, workup for hyperaldosteronism in process. She has a history of aortic stenosis occasionally will have chest pain. Feels she is developing mild upper respiratory infection with hoarse voice and a tickle in her throat. Lungs are completely clear. There was no clinical signs of heart failure. Both lower extremities are equally swollen, there is some seepage through the skin on the right side. Given the bilateral swelling I am less concerned with DVT at this time. There was no evidence of infection, renal compromise or elevated BNP. I am going to place her on 20 mg of Lasix with oral potassium and suggestion that she follow up with 1 of her physicians within the next 1-2 weeks. I suspect that she will benefit from having a at least BNP recheck to make sure that renal function and electrolytes are appropriate. We did discuss hypotension in the setting of aortic stenosis. Clearly reiterated that if she has exertional dyspnea, chest pain at rest or is feeling weaker further evaluation in the emergency department is warranted. Questions are answered she is safe for discharge Discharge Plan Departure Patient Disposition: Home Clinical Impression: Bilateral edema of lower extremity Instructions: DI for Dependent Edema Activity Restrictions/Additional Instructions: Thank you for coming in today I did not find any evidence for heart failure, heart attack, kidney failure or other life-threatening explanations for the swelling in your legs. With this swelling being fairly symmetrical, I do not think that this is a blood clot. I do think that both legs are swollen enough that they are hurting, the right 1 is actually having fluid seeping through the skin, fortunately with no blisters, no ulcers forming and no signs of infection. At this point, I am going to suggest that we treat this swelling with 20 mg of Lasix daily along with potassium. Would suggest at least a week of this medication. You can continue it daily if needed but you can also use it on an as-needed basis based on how much swelling you do have an your lower extremities Prescriptions were sent to [facility] in [place] You will need a follow up lab test to look at kidney function and potassium levels. I wish you luck with your appointments with the [facility] to figure out the aldosterone issues. If you are having worsening shortness of breath, chest pain or dizziness you do need to return to the emergency department Prescriptions: New furosemide 20 mg tablet 20 mg PO DAILY Qty: 30 1RF potassium chloride 8 mEq capsule, extended release 8 meq PO DAILY Qty: 30 1RF No Action albuterol sulfate [Ventolin HFA] 90 MCG/PUFF HFA aerosol inhaler 2 puff INH Q4HP PRN (Reason: Shortness Of Breath) Qty: 0 potassium chloride 10 mEq Capsule, Extended Release 10 meq PO DAILY aspirin [Mark Low Dose Aspirin] 81 mg Tablet,Delayed Release (Dr/Ec) 81 mg PO DAILY Zyrtec 10 mg Capsule 10 mg PO DAILY ondansetron 4 mg tablet,disintegrating 4 mg PO Q8H PRN (Reason: nausea and vomiting) Qty: 14 0RF metoprolol succinate 50 mg tablet extended release 24 hr 50 mg PO QPM hydrochlorothiazide 25 mg tablet 12.5 mg PO DAILY losartan 100 mg tablet 100 mg PO BEDTIME Patient Comments: TAKE ONE TABLET BY MOUTH DAILY AT BEDTIME FOR HIGH BLOOD PRESSURE (DME) NovoTwist 32 gauge x 1/5 needle MISCELLANEOUS metoprolol succinate 100 mg tablet extended release 24 hr 100 mg PO QAM Patient Comments: TAKE 1 TABLET BY MOUTH ONCE IN THE MORNING Ozempic 0.25 mg or 0.5 mg(2 mg/1.5 mL) pen injector 0.25 mg SUBCUT WEEKLY Referrals: Alisha Mackay DO [Primary Care Provider, Internal Medicine] Stand Alone Forms: Patient Portal/API
[2024-12-12 10:36] LABS: Add Manual Diff / Slide Review NO; Hematocrit 34.7 % (36-46); Hemoglobin 11.9 g/dL (12.0-16.0); Lymphocytes Absolute Auto 1000 /uL (1100-4500); Mean Corpuscular HGB Conc 34.4 % (30-36); Mean Corpuscular Hemoglobin 30.7 PG (26-34); Mean Corpuscular Volume 89.1 fL (80-100); Platelet Count 197 X10^3/uL (150-400)
[2024-12-12 10:41] LABS: Blood Urea Nitrogen 16 mg/dL (7-17); Calcium 9.1 mg/dL (8.4-10.2); Carbon Dioxide 25 mmol/L (22-32); Chloride 100 mmol/L (98-107); Estimated Glomerular Filt Rate > 60 mL/min (>60); Glucose 122 mg/dL (70-99); HEMOLYSIS < 15 (0-50); Potassium 4.1 mmol/L (3.4-5.1); Sodium 134 mmol/L (137-145)
[2024-12-12 10:51] LABS: NT-proBNP (BNP-Adult 18+) 428 pg/mL (<450)
[2024-12-12 11:14] VITALS: BP 125/60; PULSE 71; O2SAT 98
[2024-12-12] MEDS: FUROSEMIDE 40 MG TABLET PO (12:41)
[2024-12-12 13:04] VITALS: BP 164/69; PULSE 64; RESP 16; O2SAT 97
== END 2024-12-12 13:06 | disposition home or self-care (01) ==
PROVIDERS: Emergency Provider Emergency Medicine; PCP Student in an Organized Health Care Education/Training Program
DX: R60.0 Localized edema (principal); R49.0 Dysphonia; Z86.79 Personal history of other diseases of the circulatory system
CPT/HCPCS: 36415; 80048; 83880; 85025; 99283

== ENCOUNTER → 2024-12-17 09:17 | Outpatient (CLI) | payer BC, SELFPAY ==
--- NOTE | 2024-12-17 09:19 | DI.ECHO.S_ITS ---
[facility] : : [address] : : [place] : : [id number] : : Phone: [phone] Echocardiogram Report + + :Name: MIRANDA CHEN Study Date: 12/17/2024 Height: 62 in : :Hospital ReadingLocation: Weight: 168 lb : : Gender: Female BSA: 1.8 m2 : :: 1940 Age: 84 yrs BP: 107/56 mmHg: :Reason For Study: AORTIC STENOSIS : :Ordering Physician: ZEHRA SANTOS Performed By: Olive Barrera : :Referring: ZEHRA SANTOS : + + Interpretation Summary 1. Left ventricular contractility is normal. Estimated ejection fraction is greater than 65% with no segmental wall motion abnormalities. Mild concentric LVH. Normal diastolic function. 2. The right ventricular contractility is normal. 3. All cardiac chambers are of normal size. 4. Moderate to severe aortic valvular stenosis with peak velocity of 3.9 m/s with mean gradient 35 mmHg. 5. No obvious intracardiac shunts. 6. No obvious intracardiac masses nor thrombi. 7. No hemodynamically significant pericardial effusion. 8. Low right-sided filling pressures. Conclusion: Normal biventricular systolic function with moderate to severe aortic valvular stenosis. When compared with previous study, there is progression of the aortic valve disease. Procedure: A two-dimensional transthoracic echocardiogram with color flow and Doppler was performed. The study quality was technically adequate. Comparison is made with the echocardiogram of 02/10/2020. The patient was in sinus rhythm with heart rates between 55-68 bpm during the exam. Left Ventricle: The left ventricle is normal in size. There is mild concentric left ventricular hypertrophy. The ejection fraction is estimated to be 65-70%. Normal diastolic function. Right Ventricle: The right ventricle is normal size. The right ventricular systolic function is normal. Atria: The left atrial size is normal. Right atrial size is normal. There is no Doppler evidence for an interatrial shunt. Mitral Valve: There is mild mitral annular calcification. The mitral valve leaflets are mildly calcified. There is trace mitral regurgitation. Aortic Valve: The aortic valve is moderately calcified. The aortic valve is trileaflet. There is moderate to severe aortic stenosis. The peak aortic velocity is 3.9 m/sec. The aortic valve mean gradient is 35 mmHg. The calculated aortic valve area is 0.82 cm2. There is trace aortic regurgitation. Tricuspid Valve: The tricuspid valve leaflets are thin and pliable. There is trace tricuspid regurgitation. Pulmonary artery pressures cannot be estimated because of the lack of a measurable TR jet velocity but the IVC suggests a CVP of around 3 mmHg. Pulmonic Valve: The pulmonic valve leaflets are thin and pliable; valve motion is normal. There is trace pulmonic regurgitation. Great Vessels: The aortic root is normal size. The dimensions of the ascending aorta are normal. The IVC is of normal diameter and collapses greater than 50% with a sniff. This suggests a low right atrial pressure of 3 mm Hg. Pericardium/ Pleura There is an anterior echo-free space consistent with a fat pad. There is no pleural effusion. MMode/2D Measurements & Calculations LVIDd: 3.1 cm LVOT diam: 2.1 cm LVIDs: 2.0 cm Ao root diam: 2.6 cm FS: 36.0 % asc Aorta Diam: 3.0 cm IVSd: 1.3 cm Ao Arch Diam (Prox Trans): 2.3 cm LVPWd: 1.1 cm LV duval. diameter/BSA (cm/m^2): 1.7 LV sys. diameter/BSA (cm/m^2): 1.1 LA A2 area: 19.7 cm2 RA long axis: 4.9 cm LA A4 area: 18.8 cm2 RA area: 12.3 cm2 LA length (vol): 5.5 cm RA vol: 26.3 ml LA vol: 57.5 ml RA : 14.8 ml/m2 LA vol index: 32.4 ml/m2 IVC diam: 1.7 cm RVD1 (basal): 3.0 cm RVD2 (mid): 2.9 cm TAPSE: 2.1 cm Doppler Measurements & Calculations Ao V2 max: 397.0 cm/sec LVOT Max Ryan: 90.6 cm/sec Ao V2 mean: 272.9 cm/sec LV V1 max P.3 mmHg Ao max P.1 mmHg LV V1 VTI: 20.6 cm Ao mean P.8 mmHg STEVE(I,D): 0.84 cm2 Ao V2 VTI: 87.9 cm STEVE(V,D): 0.82 cm2 sev ratio: 0.23 STEVE indexed to BSA (cm^2/m^2): 0.48 MV E max ryan: 83.5 cm/sec PA V2 max: 97.7 cm/sec MV A max ryan: 124.8 cm/sec PA V2 mean: 66.2 cm/sec MV E/A: 0.67 PA mean P.0 mmHg Med Peak E' Ryan: 7.0 cm/sec PA pr(Accel): 23.8 mmHg E/E' med: 11.9 Lat Peak E' Ryan: 5.5 cm/sec E/E' lat: 15.2 E/e' average: 13.5 MV dec time: 0.32 sec MVA(VTI): 1.9 cm2 MV V2 mean: 65.5 cm/sec SV(LVOT): 74.3 ml MV mean P.0 mmHg MV V2 VTI: 38.2 cm Reading Physician:MYNOR
== END ==
PROVIDERS: PCP Student in an Organized Health Care Education/Training Program; Referring Provider Student in an Organized Health Care Education/Training Program; Visit Provider Internal Medicine
DX: I08.0 Rheumatic disorders of both mitral and aortic valves (principal)
CPT/HCPCS: 93306